=== PATIENT | male | born 1960 | race Caucasian/White ===

== ENCOUNTER 2018-07-24 09:09 | Inpatient (IN) | payer BC ==
[~2018-07-24] VITALS: Ht 180.3 cm; Wt 89.8 kg
[2018-07-24] VITALS (23 sets, daily range): BP systolic 92–200; BP diastolic 63–116
[~2018-07-24 09:09] MED LIST: FENO48TA16 PO; LISI10TA2 PO
--- NOTE | 2018-07-24 09:28 | RAD ---
PQRS Compliance Statement: One or more of the following individualized dose reduction techniques were utilized for this examination: 1. Automated exposure control 2. Adjustment of the mA and/or kV according to patient size 3. Use of iterative reconstruction technique CT head without contrast 07/24/2018 9:05 AM INDICATION: Facial numbness COMPARISON: None available TECHNIQUE: Multiple axial CT images of the head were obtained from skull base through the vertex without intravenous contrast. FINDINGS: Head: Ventricles, sulci and basal cisterns are within normal limits. Focal hypoattenuation in the right caudate head may represent a remote lacunar infarct. There is no hydrocephalus. Burnett-white matter differentiation is normal. There is no acute intracranial hemorrhage. There is no mass, mass effect or midline shift. Posterior fossa is normal in appearance. Visualized portions of the orbits are normal. Paranasal sinuses are well aerated. Mastoid air cells are well aerated. Scalp and calvaria are normal. IMPRESSION: No acute intracranial hemorrhage. 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 FOR INTERNAL CODING PURPOSES Critical result: Findings discussed with ROLANDO ENRIQUE at 07/24/2018 9:21 AM. RESULT CODE: (C) Electronically signed by: Nerissa Mckeon MD (07/24/2018 9:23 AM) [facility]
--- NOTE | 2018-07-24 09:32 | PHYS DOC ---
Past Medical History Past Medical History: High Cholesterol, Hypertension Past Surgical History: Other Additional Past Surgical Histo: cyst Alcohol Use: None Drug Use: None Adult General Chief Complaint Chief Complaint: NEURO SYMPTOMS/DEFICITS [facility] Patient is a 57 year old male who brought in by EMS because of focal neuro deficit. Patient states he had sudden onset of left sided facial and upper extremity numbness that started at 0740 as a constant problem with problem with his speech. Patient was not able to stand up or walk at his home. Patient brought in as a code stroke activation. Patient has history of hypertension and dyslipidemia and doesn't take medications. Patient states he had 1 episodes of dizziness 4 days ago that last for a short time without any focal neuro deficit. Review of Systems Review of Systems Constitutional: Denies fever or chills [] Eyes: Denies change in visual acuity, redness, or eye pain [] HENT: Denies nasal congestion or sore throat [] Respiratory: Denies cough or shortness of breath [] Cardiovascular: No additional information not addressed in HPI [] GI: Denies abdominal pain, nausea, vomiting, bloody stools or diarrhea [] : Denies dysuria or hematuria [] Musculoskeletal: Denies back pain or joint pain [] Integument: Denies rash or skin lesions [] Neurologic: Denies headache, reports focal weakness and sensory changes [] Endocrine: Denies polyuria or polydipsia [] All other systems were reviewed and found to be within normal limits, except as documented in this note. Current Medications Current Medications Allergies Allergies Allergies Coded Allergies Type Severity Reaction Last Updated Verified venom-honey bee Allergy Intermediate 05/04/15 No Physical Exam Physical Exam Constitutional: Well developed, well nourished, mild distress, non-toxic appearance. [] HENT: Normocephalic, atraumatic, bilateral external ears normal, oropharynx moist, no oral exudates, nose normal. [] Eyes: PERRLA, nystagmus bilaterally, decrease of vision in right eye, left eye medial deviation, conjunctiva normal, no discharge. [] Neck: Normal range of motion, no tenderness, supple, no stridor. [] Cardiovascular: Sinus bradycardia, no murmur [] Lungs & Thorax: Bilateral breath sounds clear to auscultation [] Abdomen: Bowel sounds normal, soft, no tenderness, no masses, no pulsatile masses. [] Skin: Warm, dry, no erythema, no rash. [] Back: No tenderness, no CVA tenderness. [] Extremities: No tenderness, no cyanosis, no clubbing, ROM intact, no edema. [] Neurologic: Alert and oriented X 3, mild left lower extremity weakness, left side of face and upper extremity decrease of sensation, no facial weakness Current Patient Data Vital Signs Vital Signs Date Time Temp Pulse Resp B/P (MAP) Pulse Ox O2 Delivery O2 Flow Rate FiO2 07/24/18 09:29 57 16 98 07/24/18 09:09 97.4 193/117 (142) Room Air 97.4 Lab Values Laboratory Tests Test 07/24/18 09:17 07/24/18 09:18 Glucose (Fingerstick) 173 mg/dL (70-99) H White Blood Count 11.6 x10^3/uL (4.0-11.0) H Red Blood Count 5.71 x10^6/uL (4.30-5.70) H Hemoglobin 17.8 g/dL (13.0-17.5) H Hematocrit 51.4 % (39.0-53.0) Mean Corpuscular Volume 89 fL (79-100) Mean Corpuscular Hemoglobin 32 pg (25-35) Mean Corpuscular Hemoglobin Concent 36 g/dL (31-37) Red Cell Distribution Width 13.2 % (11.5-14.5) Platelet Count 299 x10^3/uL (140-400) Prothrombin Time 12.8 SEC (11.7-14.0) Prothrombin Time INR 1.0 (0.8-1.1) PTT 27 SEC (24-38) Sodium Level 137 mmol/L (136-145) Potassium Level 3.9 mmol/L (3.5-5.1) Chloride Level 102 mmol/L (98-107) Carbon Dioxide Level 25 mmol/L (21-32) Anion Gap 10 (6-14) Blood Urea Nitrogen 13 mg/dL (8-26) Creatinine 1.0 mg/dL (0.7-1.3) Estimated GFR (Cockcroft-Gault) 77.0 BUN/Creatinine Ratio 13 (6-20) Glucose Level 171 mg/dL (70-99) H Calcium Level 9.0 mg/dL (8.5-10.1) Total Bilirubin 0.5 mg/dL (0.2-1.0) Aspartate Amino Transferase (AST) 17 U/L (15-37) Alanine Aminotransferase (ALT) 26 U/L (16-63) Alkaline Phosphatase 83 U/L (46-116) Troponin I Quantitative < 0.017 ng/mL (0.000-0.055) Total Protein 7.1 g/dL (6.4-8.2) Albumin 3.8 g/dL (3.4-5.0) Albumin/Globulin Ratio 1.2 (1.0-1.7) Laboratory Tests 07/24/18 09:18 Laboratory Tests 07/24/18 09:18 EKG EKG EKG interpreted by me. EKG at 0 927 showed sinus bradycardia at rate of 56, leftward axis, poor R-wave progress in anteroseptal leads, no acute ST and T- wave abnormalities. Radiology/Procedures Radiology/Procedures [facility] [address] [place], [place] [id number] IMAGING REPORT Signed PATIENT: GABRIELLA ALVAREZ ACCOUNT: [id number] : 1960 LOCATION: ER AGE: 57 SEX: M EXAM STATUS: PRE ER ORD. PHYSICIAN: ROLANDO ENRIQUE MD REASON: code stroke PROCEDURE: CT CODE STROKE HEAD WO RS Compliance Statement: One or more of the following individualized dose reduction techniques were utilized for this examination: 1. Automated exposure control 2. Adjustment of the mA and/or kV according to patient size 3. Use of iterative reconstruction technique CT head without contrast 07/24/2018 9:05 AM INDICATION: Facial numbness COMPARISON: None available TECHNIQUE: Multiple axial CT images of the head were obtained from skull base through the vertex without intravenous contrast. FINDINGS: Head: Ventricles, sulci and basal cisterns are within normal limits. Focal hypoattenuation in the right caudate head may represent a remote lacunar infarct. There is no hydrocephalus. Burnett-white matter differentiation is normal. There is no acute intracranial hemorrhage. There is no mass, mass effect or midline shift. Posterior fossa is normal in appearance. Visualized portions of the orbits are normal. Paranasal sinuses are well aerated. Mastoid air cells are well aerated. Scalp and calvaria are normal. IMPRESSION: No acute intracranial hemorrhage. 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 FOR INTERNAL CODING PURPOSES Critical result: Findings discussed with ROLANDO ENRIQUE at 07/24/2018 9:21 AM. RESULT CODE: (C) Electronically signed by: Yola Haq MD (07/24/2018 9:23 AM) [facility] DICTATED and SIGNED BY: YOLA HAQ MD DATE: 07/24/18919 Course & Med Decision Making Course & Med Decision Making Pertinent Labs and Imaging studies reviewed. (See chart for details) Evaluation of patient in ER showed 57-year-old male patient brought in by EMS because of acute onset onset of focal neuro deficit less than 3 hours prior to arrival to ER. Patient had NIHSS of 5 and had criteria for TPA on-call neurologist Dr. Anaya was consulted agreed with plan of starting TPA. TPA was started at 0950 after controlling elevation of blood pressure with improvement of symptoms. CT angio head and neck is pending. Dr. Frausto accepted admission at 0955. Dragon Disclaimer Dragon Disclaimer This electronic medical record was generated, in whole or in part, using a voice recognition dictation system. Departure Departure Impression: Primary Impression: Acute focal neurological deficit, onset within 3 hours Additional Impressions: Hypertensive urgency Tobacco abuse Tobacco abuse counseling Disposition: ADMITTED INPATIENT (at 0 942) Admitting Physician: Nayely Frausto Condition: GUARDED Referrals: TATIANNA CAMERON MD (PCP) NIHSS Stroke Scale NIH Stroke Scale: NIH Stroke Scale Response (Comments) Value Level of Consciousness: 0 Alert/Responsive 0 LOC Questions: 0 Answers both correctly 0 LOC Commands: 0 Performs both tasks 0 Best Gaze: 1 Partial gaze palsy 1 Visual: 1 Partial hemianopia 1 Facial Palsy: 0 Normal, symmetrical 0 Motor - Left Arm 0 No drift 0 Motor - Right Arm 0 No drift 0 Motor - Left Leg 1 Drift but can hold 1 Motor: Right Leg 0 No drift 0 Limb Ataxia: 1 One limb 1 Sensory: 1 Mid to moderate loss 1 Best Language: 0 Normal 0 Dysathria: 0 Normal 0 Extinction and Inattention: 0 Normal 0 Total 5 Critical Care Time Critical care time was 60 minutes exclusive of procedures. Problem Qualifiers ROLANDO ENRIQUE MD Jul 24, 2018 09:32
[2018-07-24 09:34] LABS: RED BLOOD COUNT 5.71 x10^6/uL (4.30-5.70); RED CELL DISTRIBUTION WIDTH 13.2 % (11.5-14.5); WHITE BLOOD COUNT 11.6 x10^3/uL (4.0-11.0)
--- NOTE | 2018-07-24 09:39 | EKG ---
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
[2018-07-24] MEDS ORDERED: ALTEPLASE IV ONE (09:40)
[2018-07-24] MEDS ORDERED: ALTEPLASE IV SCH (09:41)
[2018-07-24 09:43] LABS: HEMATOCRIT 51.4 % (39.0-53.0); HEMOGLOBIN 17.8 g/dL (13.0-17.5)
[2018-07-24] MEDS ORDERED: hydrALAZINE 20 MG/ML VIAL. IVP ONE ×2 (09:45→10:45)
[2018-07-24 09:47] LABS: PROTHROMBIN TIME PATIENT 12.8 SEC (11.7-14.0)
[2018-07-24 09:51] LABS: POTASSIUM 3.9 mmol/L (3.5-5.1)
[2018-07-24 09:56] LABS: ALBUMIN 3.8 g/dL (3.4-5.0); ALBUMIN/GLOBULIN RATIO 1.2 (1.0-1.7); TOTAL BILIRUBIN 0.5 mg/dL (0.2-1.0); TOTAL PROTEIN 7.1 g/dL (6.4-8.2)
[2018-07-24] MEDS ORDERED: CONTRAST GIVEN. MC PRN (10:15)
[2018-07-24] MEDS ORDERED: IOHEXOL 350 MG/ML 100 ML VIAL. IV ONE (10:15)
[2018-07-24] MEDS ORDERED: IOHEXOL 300 MG/ML 100ML VIAL. IV ONE (10:15)
[2018-07-24] MEDS ORDERED: IV NORMAL SALINE 50ML 50 ML IV ONE (10:40)
--- NOTE | 2018-07-24 11:06 | RAD ---
PQRS Compliance Statement: One or more of the following individualized dose reduction techniques were utilized for this examination: 1. Automated exposure control 2. Adjustment of the mA and/or kV according to patient size 3. Use of iterative reconstruction technique CT angiography head and neck with contrast 07/24/2018 INDICATION: Altered mental status. Cholesterol. COMPARISON: Multiple axial CT images of the head and neck were obtained after the intravenous administration of 75 mL Omnipaque 350. Coronal and sagittal reformats are provided. Maximum intensity projection images of the cervical and intracranial vasculature are provided. FINDINGS: Nonvascular findings: No suspicious enhancement is identified. Orbits are normal in appearance. Paranasal sinuses are well aerated. No suspicious mucosal lesion is identified involving the pharynx and larynx. There are no pathologically enlarged cervical lymph nodes. Soft tissues are within normal limits. A right paratracheal lymph node measures 17 x 13 mm. There is paraseptal emphysematous changes within the visualized lung apices. Mild facet and uncovertebral joint disease is noted with mild cervical spondylosis. Vascular findings: A normal three-vessel aortic arch is visualized. Origins of the brachiocephalic vessels appear widely patent. The left common carotid artery is normal in course and caliber. No significant plaque is identified at the carotid bifurcation. No significant stenosis of the proximal left internal carotid artery. Left external carotid artery is widely patent. Right common carotid artery is normal in course and caliber. There is no significant stenosis involving the proximal right internal carotid artery. Right external carotid artery is widely patent. Vertebral arteries arise from their respective subclavian vessels. Right vertebral artery is larger than the left. Vertebral arteries are normal in course and caliber. There is focal severe stenosis of the intracranial segment left vertebral artery which may be secondary to atherosclerotic changes are vertebral dissection (series 3, image 205). Right posterior inferior cerebellar arteries visualize. Left posterior inferior cerebellar artery is not well visualized. Right vertebral artery is dominant. There is mild irregularity involving the proximal petrous portion of the left internal carotid artery. Intracranial segments of internal carotid arteries are otherwise normal in course and caliber. Middle cerebral arteries are normal in course and caliber with patent sylvian branches. Anterior cerebral arteries are normal in course and caliber. Bilateral A1 segments of anterior cerebral arteries are present. The anterior communicating artery is not definitively visualized. Basilar artery is normal in course and caliber. Superior cerebellar arteries are patent. Bilateral P1 segments of the posterior cerebral arteries are present. Posterior cerebral arteries are normal in course and caliber. Posterior communicating arteries are not well visualized. There is no aneurysm or vascular malformation identified. Superior sagittal sinus and transverse sinuses are patent. IMPRESSION: 1. There is focal high-grade stenosis involving the intracranial segment of the left vertebral artery versus vertebral dissection. There is reconstitution of the left vertebral artery distally, likely secondary to retrograde flow from the right vertebral artery. Right vertebral artery is dominant. 2. There is no hemodynamically significant stenosis involving the cervical carotid vessels. Mild stenosis is identified at the origin of the petrous segment of the left internal carotid artery. 3. Mild paraseptal emphysema. Electronically signed by: Nerissa Mckeon MD (07/24/2018 11:02 AM) [facility]
[2018-07-24] MEDS ORDERED: LABETALOL 20 MG/4 ML DISP.SYRIN. IVP PRN (11:15)
[2018-07-24] MEDS ORDERED: ACETAMINOPHEN 325 MG SUPP.RECT. PR PRN (11:15)
[2018-07-24] MEDS ORDERED: ACETAMINOPHEN 325 MG TABLET. PO PRN (11:15)
[2018-07-24] MEDS ORDERED: ONDANSETRON PF 4 MG/2 ML VIAL. IV PRN (11:15)
--- NOTE | 2018-07-24 11:30 | NUR ---
Patient received ICU at 1100. Oriented to room, ED RN administered NIH at bedside. Admission completed. Patient complained 10/ head ache. Dr. Wing paged and is on way down to see patient. Morphine, 2mg every 2hrs ordered and administered. Family at bedside.
[2018-07-24] MEDS: MORPHINE SULFATE 4 MG/ML VIAL. IV PRN ×2 (11:42→13:32)
[2018-07-24] MEDS ORDERED: MORPHINE SULFATE 4 MG/ML VIAL. IV ONE (11:45)
--- NOTE | 2018-07-24 11:54 | PDOC2 ---
NEUROLOGY CONSULT Date of Admission Date of Admission DATE: 07/24/18 TIME: 11:45 Reason for Consult Reason for Consult: Stroke symptoms Referring Physician Referring Physician: Dr. Frausto Source Source: Caregiver ( and daughter), Chart review, Patient History of Present Illness History of Present Illness The patient is a 57-year-old right-handed male who at 7:45 AM today noticed onset of dizziness, left face and arm numbness. He came to the [facility] emergency department. I discussed the case with Dr. Gutierrez the patient did receive alteplase. He also has had CT of the head and CT angiogram as described below. There is no prior history of stroke, seizure, or head injury. He denies any type of recent strenuous activity or hyperextension of his neck. Since the alteplase but before the CTA, he is developed severe left frontal head pain. He admits to noncompliance with his antihypertensives. 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 Current Medications Current Medications Current Medications Alteplase, Recombinant 8.1 ml @ 486 mls/hr 1X ONCE IV Last administered on at 09:50; Start 07/24/18 at 09:40; Stop 07/24/18 at 09:41; Status DC Alteplase, Recombinant 73 ml @ 73 mls/hr Q1H IV Last administered on 07/24/18at 09:54; Start 07/24/18 at 09:41; Stop 07/24/18 at 10:40; Status DC Sodium Chloride 50 ml @ 200 mls/hr 1X ONCE IV Last administered on 07/24/18at 10:39; Start 07/24/18 at 10:40; Stop 07/24/18 at 10:54; Status DC Hydralazine HCl (Apresoline Inj) 10 mg 1X ONCE IVP Last administered on at 10:07; Start 07/24/18 at 09:45; Stop 07/24/18 at 09:46; Status DC Iohexol (Omnipaque 300 Mg/ml) 75 ml 1X ONCE IV ; Start 07/24/18 at 10:15; Stop 07/24/18 at 10:16; Status DC Iohexol (Omnipaque 350 Mg/ml) 75 ml 1X ONCE IV Last administered on 07/24/18at 10:21; Start 07/24/18 at 10:15; Stop 07/24/18 at 10:16; Status DC Info (CONTRAST GIVEN -- Rx MONITORING) 1 each PRN DAILY PRN MC SEE COMMENTS; Start 07/24/18 at 10:15; Stop 07/26/18 at 10:14 Hydralazine HCl (Apresoline Inj) 10 mg 1X ONCE IVP Last administered on at 10:37; Start 07/24/18 at 10:45; Stop 07/24/18 at 10:46; Status DC Labetalol HCl (Normodyne Iv Push) 10 mg PRN Q10MIN PRN IVP HYPERTENSION, SEE COMMENTS; Start 07/24/18 at 11:15 Nicardipine HCl 50 mg/Sodium Chloride 250 ml @ 25 mls/hr CONT PRN PRN IV HYPERTENSION, SEE COMMENTS; Start 07/24/18 at 11:15 Acetaminophen (Tylenol) 650 mg PRN Q6HRS PRN PO MILD PAIN / TEMP; Start at 11:15 Acetaminophen (Tylenol Supp) 325 mg PRN Q6HRS PRN CT MILD PAIN / TEMP; Start at 11:15 Ondansetron HCl (Zofran) 4 mg PRN Q6HRS PRN IV NAUSEA/VOMITING; Start 07/24/18 at 11:15 Morphine Sulfate (Morphine Sulfate) 2 mg 1X ONCE IV ; Start 07/24/18 at 11:45; Stop 07/24/18 at 11:46; Status DC Active Scripts Active Reported Tricor (Fenofibrate Nanocrystallized) 48 Mg Tablet 48 Mg PO DAILY Lisinopril 10 Mg Tablet 10 Mg PO DAILY Allergies Allergies: Coded Allergies: venom-honey bee (Unverified Allergy, Intermediate, 05/04/15) ROS Review of System Negative for fever, chills, weight loss, shortness of breath, chest pain, indigestion, hematochezia, melena, and dysuria. Full 14-point review of systems is negative. Physical Exam Physical Examination General: Well-developed, well-nourished white male in no acute distress HEENT: Normocephalic andatraumatic. Tympanic membranes clear.Temporal arteries pulsatile and nontender.Fundoscopic exam unremarkable Neck: Supple without bruit, no meningismus Musculoskeletal: Stability:see neurologic. Gait exam:see neurologic. Tone:see neurologic. Strength:see neurologic. Neurological: Mental Status:intact, orientation, memory, attention span/concentration, language, fund of knowledge normal. Cranial Nerves:Pupils equal and reactive to light, visual urrutia are full to confrontation. 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 Facial sensation is decreased on left. There is no facial asymmetry. Vestibulo-ocular reflex is intact. Palate elevates and tongue protrudes in midline. All other cranial related problems are negative except as mentioned before.Reflexes:2+ and symmetric with flexor plantar responses. Motor:5/5 strength with normal tone and bulk. Coordination:Left dysmetria. Rapid alternating movements and fine finger movements are intact. Gait:Normal, including tandem. Sensory:Sensory loss on left. Vitals VITALS Vital Signs Date Time Temp Pulse Resp B/P (MAP) Pulse Ox O2 Delivery O2 Flow Rate FiO2 07/24/18 10:55 78 16 97 07/24/18 10:37 192/97 07/24/18 09:09 97.4 Room Air 97.4 Labs Labs Laboratory Tests Test 07/24/18 09:17 07/24/18 09:18 Glucose (Fingerstick) 173 mg/dL (70-99) White Blood Count 11.6 x10^3/uL (4.0-11.0) Red Blood Count 5.71 x10^6/uL (4.30-5.70) Hemoglobin 17.8 g/dL (13.0-17.5) Hematocrit 51.4 % (39.0-53.0) Mean Corpuscular Volume 89 fL (79-100) Mean Corpuscular Hemoglobin 32 pg (25-35) Mean Corpuscular Hemoglobin Concent 36 g/dL (31-37) Red Cell Distribution Width 13.2 % (11.5-14.5) Platelet Count 299 x10^3/uL (140-400) Prothrombin Time 12.8 SEC (11.7-14.0) Prothromb Time International Ratio 1.0 (0.8-1.1) Activated Partial Thromboplast Time 27 SEC (24-38) Sodium Level 137 mmol/L (136-145) Potassium Level 3.9 mmol/L (3.5-5.1) Chloride Level 102 mmol/L (98-107) Carbon Dioxide Level 25 mmol/L (21-32) Anion Gap 10 (6-14) Blood Urea Nitrogen 13 mg/dL (8-26) Creatinine 1.0 mg/dL (0.7-1.3) Estimated GFR (Cockcroft-Gault) 77.0 BUN/Creatinine Ratio 13 (6-20) Glucose Level 171 mg/dL (70-99) Calcium Level 9.0 mg/dL (8.5-10.1) Total Bilirubin 0.5 mg/dL (0.2-1.0) Aspartate Amino Transf (AST/SGOT) 17 U/L (15-37) Alanine Aminotransferase (ALT/SGPT) 26 U/L (16-63) Alkaline Phosphatase 83 U/L (46-116) Troponin I Quantitative < 0.017 ng/mL (0.000-0.055) Total Protein 7.1 g/dL (6.4-8.2) Albumin 3.8 g/dL (3.4-5.0) Albumin/Globulin Ratio 1.2 (1.0-1.7) Laboratory Tests Test 07/24/18 09:17 07/24/18 09:18 Glucose (Fingerstick) 173 mg/dL (70-99) White Blood Count 11.6 x10^3/uL (4.0-11.0) Red Blood Count 5.71 x10^6/uL (4.30-5.70) Hemoglobin 17.8 g/dL (13.0-17.5) Hematocrit 51.4 % (39.0-53.0) Mean Corpuscular Volume 89 fL (79-100) Mean Corpuscular Hemoglobin 32 pg (25-35) Mean Corpuscular Hemoglobin Concent 36 g/dL (31-37) Red Cell Distribution Width 13.2 % (11.5-14.5) Platelet Count 299 x10^3/uL (140-400) Prothrombin Time 12.8 SEC (11.7-14.0) Prothromb Time International Ratio 1.0 (0.8-1.1) Activated Partial Thromboplast Time 27 SEC (24-38) Sodium Level 137 mmol/L (136-145) Potassium Level 3.9 mmol/L (3.5-5.1) Chloride Level 102 mmol/L (98-107) Carbon Dioxide Level 25 mmol/L (21-32) Anion Gap 10 (6-14) Blood Urea Nitrogen 13 mg/dL (8-26) Creatinine 1.0 mg/dL (0.7-1.3) Estimated GFR (Cockcroft-Gault) 77.0 BUN/Creatinine Ratio 13 (6-20) Glucose Level 171 mg/dL (70-99) Calcium Level 9.0 mg/dL (8.5-10.1) Total Bilirubin 0.5 mg/dL (0.2-1.0) Aspartate Amino Transf (AST/SGOT) 17 U/L (15-37) Alanine Aminotransferase (ALT/SGPT) 26 U/L (16-63) Alkaline Phosphatase 83 U/L (46-116) Troponin I Quantitative < 0.017 ng/mL (0.000-0.055) Total Protein 7.1 g/dL (6.4-8.2) Albumin 3.8 g/dL (3.4-5.0) Albumin/Globulin Ratio 1.2 (1.0-1.7) Images Images CT angiography head and neck with contrast 07/24/2018 Nonvascular findings: No suspicious enhancement is identified. Orbits are normal in appearance. Paranasal sinuses are well aerated. No suspicious mucosal lesion is identified involving the pharynx and larynx. There are no pathologically enlarged cervical lymph nodes. Soft tissues are within normal limits. A right paratracheal lymph node measures 17 x 13 mm. There is paraseptal emphysematous changes within the visualized lung apices. Mild facet and uncovertebral joint disease is noted with mild cervical spondylosis. Vascular findings: A normal three-vessel aortic arch is visualized. Origins of the brachiocephalic vessels appear widely patent. The left common carotid artery is normal in course and caliber. No significant plaque is identified at the carotid bifurcation. No significant stenosis of the proximal left internal carotid artery. Left external carotid artery is widely patent. Right common carotid artery is normal in course and caliber. There is no significant stenosis involving the proximal right internal carotid artery. Right external carotid artery is widely patent. Vertebral arteries arise from their respective subclavian vessels. Right vertebral artery is larger than the left. Vertebral arteries are normal in course and caliber. There is focal severe stenosis of the intracranial segment left vertebral artery which may be secondary to atherosclerotic changes are vertebral dissection (series 3, image 205). Right posterior inferior cerebellar arteries visualize. Left posterior inferior cerebellar artery is not well visualized. Right vertebral artery is dominant. There is mild irregularity involving the proximal petrous portion of the left internal carotid artery. Intracranial segments of internal carotid arteries are otherwise normal in course and caliber. Middle cerebral arteries are normal in course and caliber with patent sylvian branches. Anterior cerebral arteries are normal in course and caliber. Bilateral A1 segments of anterior cerebral arteries are present. The anterior communicating artery is not definitively visualized. Basilar artery is normal in course and caliber. Superior cerebellar arteries are patent. Bilateral P1 segments of the posterior cerebral arteries are present. Posterior cerebral arteries are normal in course and caliber. Posterior communicating arteries are not well visualized. There is no aneurysm or vascular malformation identified. Superior sagittal sinus and transverse sinuses are patent. IMPRESSION: 1. There is focal high-grade stenosis involving the intracranial segment of the left vertebral artery versus vertebral dissection. There is reconstitution of the left vertebral artery distally, likely secondary to retrograde flow from the right vertebral artery. Right vertebral artery is dominant. 2. There is no hemodynamically significant stenosis involving the cervical carotid vessels. Mild stenosis is identified at the origin of the petrous segment of the left internal carotid artery. 3. Mild paraseptal emphysema. CT head without contrast 07/24/2018 9:05 AM INDICATION: Facial numbness COMPARISON: None available TECHNIQUE: Multiple axial CT images of the head were obtained from skull base through the vertex without intravenous contrast. FINDINGS: Head: Ventricles, sulci and basal cisterns are within normal limits. Focal hypoattenuation in the right caudate head may represent a remote lacunar infarct. There is no hydrocephalus. Burnett-white matter differentiation is normal. There is no acute intracranial hemorrhage. There is no mass, mass effect or midline shift. Posterior fossa is normal in appearance. Visualized portions of the orbits are normal. Paranasal sinuses are well aerated. Mastoid air cells are well aerated. Scalp and calvaria are normal. IMPRESSION: No acute intracranial hemorrhage. 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 This is causing brainstem stroke symptoms and headache. I doubt that he is having a cerebral hemorrhage given the fact that the pain began before we did the CT angiogram and on review of images there is no bleed. History of hypertension, noncompliance. Recommendations: Vascular surgery consult. I see no need for immediate endovascular intervention. Start long-term anticoagulation but have to wait 24 hours after the alteplase Repeat CT head later today if headache persists. Morphine as needed. Echocardiogram MRI of the brain tomorrow. Rehabilitation modalities. Blood pressure control as per stroke orders. Check lipids. Fully discussed with patient and his family. Thank you for letting me help with the patient's care. BRENDA BRITT MD Jul 24, 2018 11:54
[2018-07-24] MEDS ORDERED: NICOTINE 21MG PATCH. TD PRN (14:00)
--- NOTE | 2018-07-24 14:05 | PDOC1 ---
History and Physical Date of Admission Date of Admission DATE: 07/24/18 TIME: 13:55 Identification/Chief Complaint Chief Complaint Left-sided facial numbness, left arm numbness and weakness Some slurred speech Source Source: Caregiver, Chart review, Patient History of Present Illness History of Present Illness 57-year-old male who lives at home, no significant past medical history or at least does not take any meds, comes in with above chief complaint around 7:40 AM which was within TPA window. NIH score 5. Severe headache, left- sided facial numbness and weakness, reports of slurred speech but none currently. Neurology consulted and agreed with TPA. I'm seeing at ICU post TPA with a CTA of the head and neck showing left vertebral artery stenosis. Blood pressure on the high side 170s to 180 systolic. HEadache, severe. Vascular surgery consulted. If there are needs for NEURO IR I will gladly transfer the patient. Patient ordered for echocardiogram and MRI tomorrow in the morning to see if there is any acute CVA. \CTA =IMPRESSION: 1. There is focal high-grade stenosis involving the intracranial segment of the left vertebral artery versus vertebral dissection. There is reconstitution of the left vertebral artery distally, likely secondary to retrograde flow from the right vertebral artery. Right vertebral artery is dominant. 2. There is no hemodynamically significant stenosis involving the cervical carotid vessels. Mild stenosis is identified at the origin of the petrous segment of the left internal carotid artery. 3. Mild paraseptal emphysema. Addendum to CT of the head - shows no acute intracerebral hemorrhage but maybe remote stroke in the right caudate head Past Medical History Cardiovascular: HTN Past Surgical History Past Surgical History: No pertinent history Family History Family History: High Cholestrol, Hypertension Social History Smoke: 1 pack per day ALCOHOL: none Drugs: None Current Medications Current Medications Current Medications Alteplase, Recombinant 8.1 ml @ 486 mls/hr 1X ONCE IV Last administered on at 09:50; Start 07/24/18 at 09:40; Stop 07/24/18 at 09:41; Status DC Alteplase, Recombinant 73 ml @ 73 mls/hr Q1H IV Last administered on 07/24/18at 09:54; Start 07/24/18 at 09:41; Stop 07/24/18 at 10:40; Status DC Sodium Chloride 50 ml @ 200 mls/hr 1X ONCE IV Last administered on 07/24/18at 10:39; Start 07/24/18 at 10:40; Stop 07/24/18 at 10:54; Status DC Hydralazine HCl (Apresoline Inj) 10 mg 1X ONCE IVP Last administered on at 10:07; Start 07/24/18 at 09:45; Stop 07/24/18 at 09:46; Status DC Iohexol (Omnipaque 300 Mg/ml) 75 ml 1X ONCE IV ; Start 07/24/18 at 10:15; Stop 07/24/18 at 10:16; Status DC Iohexol (Omnipaque 350 Mg/ml) 75 ml 1X ONCE IV Last administered on 07/24/18at 10:21; Start 07/24/18 at 10:15; Stop 07/24/18 at 10:16; Status DC Info (CONTRAST GIVEN -- Rx MONITORING) 1 each PRN DAILY PRN MC SEE COMMENTS; Start 07/24/18 at 10:15; Stop 07/26/18 at 10:14 Hydralazine HCl (Apresoline Inj) 10 mg 1X ONCE IVP Last administered on at 10:37; Start 07/24/18 at 10:45; Stop 07/24/18 at 10:46; Status DC Labetalol HCl (Normodyne Iv Push) 10 mg PRN Q10MIN PRN IVP HYPERTENSION, SEE COMMENTS; Start 07/24/18 at 11:15 Nicardipine HCl 50 mg/Sodium Chloride 250 ml @ 25 mls/hr CONT PRN PRN IV HYPERTENSION, SEE COMMENTS; Start 07/24/18 at 11:15 Acetaminophen (Tylenol) 650 mg PRN Q6HRS PRN PO MILD PAIN / TEMP; Start at 11:15 Acetaminophen (Tylenol Supp) 325 mg PRN Q6HRS PRN CO MILD PAIN / TEMP; Start at 11:15 Ondansetron HCl (Zofran) 4 mg PRN Q6HRS PRN IV NAUSEA/VOMITING; Start 07/24/18 at 11:15 Morphine Sulfate (Morphine Sulfate) 2 mg 1X ONCE IV Last administered on at 11:47; Start 07/24/18 at 11:45; Stop 07/24/18 at 11:46; Status DC Morphine Sulfate (Morphine Sulfate) 2 mg PRN Q2HR PRN IV PAIN Last administered on 07/24/18at 11:42; Start 07/24/18 at 12:00 Influenza Virus Vaccine (Afluria Trivalent [id number] Syringe) 0.5 ml ONCE ONCE VAX IM ; Start 07/24/18 at 13:16; Stop 07/24/18 at 13:17; Status DC Active Scripts Active Reported Lisinopril 10 Mg Tablet 10 Mg PO DAILY Allergies Allergies: Coded Allergies: venom-honey bee (Unverified Allergy, Intermediate, 05/04/15) ROS Review of System BAd headache, numb left side face, weak left arm, the rest of ROS 14 point negative Physical Exam General: No acute distress, Other (weak looking and has a towel over his forehead) HEENT: Atraumatic, PERRLA Lungs: Clear to auscultation, Normal air movement Heart: S1S2, RRR, no thrills, no rubs, no gallops, no murmurs, murmurs, no jug vein distention Cardiovascular: S1, S2 Abdomen: Normal bowel sounds, Soft, No tenderness, No hepatosplenomegaly, No masses Male Genitals Exam: normal genitalia, normal prostate Rectal Exam: not examined PELVIC: Nml ext genitalia Extremities: No clubbing, No cyanosis, No edema, Normal pulses, No tenderness/ swelling Skin: No rashes, No breakdown, No significant lesion Neuro: Normal speech, Normal tone, Sensation intact, Cranial nerves 3-12 NL, Reflexes 2+, Other (maybe muscle manual testing 4 out of 5 just because of severe headache, affecting cooperation) Psych/Mental Status: Mental status NL, Mood NL Vitals Vitals Vital Signs Date Time Temp Pulse Resp B/P (MAP) Pulse Ox O2 Delivery O2 Flow Rate FiO2 07/24/18 13:32 18 97 2.0 07/24/18 13:30 78 148/102 (117) Room Air 07/24/18 11:00 97.6 97.6 Labs Labs Laboratory Tests Test 07/24/18 09:17 07/24/18 09:18 Glucose (Fingerstick) 173 mg/dL (70-99) White Blood Count 11.6 x10^3/uL (4.0-11.0) Red Blood Count 5.71 x10^6/uL (4.30-5.70) Hemoglobin 17.8 g/dL (13.0-17.5) Hematocrit 51.4 % (39.0-53.0) Mean Corpuscular Volume 89 fL (79-100) Mean Corpuscular Hemoglobin 32 pg (25-35) Mean Corpuscular Hemoglobin Concent 36 g/dL (31-37) Red Cell Distribution Width 13.2 % (11.5-14.5) Platelet Count 299 x10^3/uL (140-400) Prothrombin Time 12.8 SEC (11.7-14.0) Prothromb Time International Ratio 1.0 (0.8-1.1) Activated Partial Thromboplast Time 27 SEC (24-38) Sodium Level 137 mmol/L (136-145) Potassium Level 3.9 mmol/L (3.5-5.1) Chloride Level 102 mmol/L (98-107) Carbon Dioxide Level 25 mmol/L (21-32) Anion Gap 10 (6-14) Blood Urea Nitrogen 13 mg/dL (8-26) Creatinine 1.0 mg/dL (0.7-1.3) Estimated GFR (Cockcroft-Gault) 77.0 BUN/Creatinine Ratio 13 (6-20) Glucose Level 171 mg/dL (70-99) Calcium Level 9.0 mg/dL (8.5-10.1) Total Bilirubin 0.5 mg/dL (0.2-1.0) Aspartate Amino Transf (AST/SGOT) 17 U/L (15-37) Alanine Aminotransferase (ALT/SGPT) 26 U/L (16-63) Alkaline Phosphatase 83 U/L (46-116) Troponin I Quantitative < 0.017 ng/mL (0.000-0.055) Total Protein 7.1 g/dL (6.4-8.2) Albumin 3.8 g/dL (3.4-5.0) Albumin/Globulin Ratio 1.2 (1.0-1.7) Laboratory Tests Test 07/24/18 09:17 07/24/18 09:18 Glucose (Fingerstick) 173 mg/dL (70-99) White Blood Count 11.6 x10^3/uL (4.0-11.0) Red Blood Count 5.71 x10^6/uL (4.30-5.70) Hemoglobin 17.8 g/dL (13.0-17.5) Hematocrit 51.4 % (39.0-53.0) Mean Corpuscular Volume 89 fL (79-100) Mean Corpuscular Hemoglobin 32 pg (25-35) Mean Corpuscular Hemoglobin Concent 36 g/dL (31-37) Red Cell Distribution Width 13.2 % (11.5-14.5) Platelet Count 299 x10^3/uL (140-400) Prothrombin Time 12.8 SEC (11.7-14.0) Prothromb Time International Ratio 1.0 (0.8-1.1) Activated Partial Thromboplast Time 27 SEC (24-38) Sodium Level 137 mmol/L (136-145) Potassium Level 3.9 mmol/L (3.5-5.1) Chloride Level 102 mmol/L (98-107) Carbon Dioxide Level 25 mmol/L (21-32) Anion Gap 10 (6-14) Blood Urea Nitrogen 13 mg/dL (8-26) Creatinine 1.0 mg/dL (0.7-1.3) Estimated GFR (Cockcroft-Gault) 77.0 BUN/Creatinine Ratio 13 (6-20) Glucose Level 171 mg/dL (70-99) Calcium Level 9.0 mg/dL (8.5-10.1) Total Bilirubin 0.5 mg/dL (0.2-1.0) Aspartate Amino Transf (AST/SGOT) 17 U/L (15-37) Alanine Aminotransferase (ALT/SGPT) 26 U/L (16-63) Alkaline Phosphatase 83 U/L (46-116) Troponin I Quantitative < 0.017 ng/mL (0.000-0.055) Total Protein 7.1 g/dL (6.4-8.2) Albumin 3.8 g/dL (3.4-5.0) Albumin/Globulin Ratio 1.2 (1.0-1.7) VTE Prophylaxis Ordered VTE Prophylaxis Devices: Yes VTE Pharmacological Prophylaxi: Yes Assessment/Plan Assessment/Plan HIGH grade Left vertebral artery stenosis versus dissection Left-sided facial numbness, left arm numbness/weakness Accelerated hypertension POA-noncompliance SMoker with emphysematous lungs on imaging PLAN: MRI of the brain. if new stroke might need transfer? neuro IR expertise?? [facility] surgery consulted Stroke workup including echo, MRI etc. Aspirin started 24 hrs post TPA ICU care No aspirin or blood thinners within 24 hrs of tPA NO home meds to reconcile NIcard gtt prn for high BP PT/OT when more well/stable SAMI patch prn OK for liquid diet for now - no swallow issues so far FULL CODE dw senior attorney and fam at bedside CC 30 ALON KEENAN MD Jul 24, 2018 14:05
--- NOTE | 2018-07-24 14:43 | NUR ---
SS following up with discharge planning. Pt's RN requested assistance with request for transfer to per Dr. Anaya. Pt's RN reported that radiology has been clouded. SS phoned transfer team and made request for transfer. video arcade manager reported that she was going to contact Dr. Anaya and conference there physicians and would notify SS once call was completed to request records if needed. Pt's RN notified.
--- NOTE | 2018-07-24 16:04 | NUR ---
SS received notification from pt's RN that [facility] declined pt for transfer.
--- NOTE | 2018-07-24 16:43 | CARD ---
MR#: [id number] Date of Study: 07/24/2018 Ordering Physician: BRENDA BRITT, Referring Physician: ALON KEENAN Tech: Irasema Valentine APPROVED REPORT EXAM: Two-dimensional and M-mode echocardiogram with Doppler and color Doppler. Other Information Quality : AverageHR: 77bpm INDICATION CVD RISK FACTORS Hypertension Hyperlipidemia Smoking 2D DIMENSIONS RVDd3.2 (2.9-3.5cm)Left Atrium(2D)3.5 (1.6-4.0cm) IVSd1.3 (0.7-1.1cm)Aortic Root(2D)3.1 (2.0-3.7cm) LVDd4.6 (3.9-5.9cm)LVOT Diameter2.1 (1.8-2.4cm) PWd1.1 (0.7-1.1cm)LVDs2.6 (2.5-4.0cm) FS (%) 44.4 %SV73.9 ml LVEF(%)75.8 (>50%) Aortic Valve AoV Peak Hugo.171.6cm/sAoV VTI29.7cm AO Peak GR.11.8mmHgLVOT VTI 22.80cm AO Mean GR.6mmHg Mitral Valve MV E Zryaftdw86.0cm/sMV DECEL [id number] MV A Edamabqr160.1cm/sE/A Ratio0.8 TDI Lateral E' P. V9.54cm/sMedial E' P. V7.01cm/s E/Lateral E'8.0E/Medial E'10.8 Tricuspid Valve RAP [id number] Pulmonary Vein S1 Nsjmfbwd12.4cm/sS2 Thipjkje66.23cm/s D2 Sydxrkih59.2cm/sPVa [id number] LEFT VENTRICLE The left ventricle is normal size. There is mild to moderate concentric left ventricular hypertrophy. The left ventricular systolic function is normal and the ejection fraction is within normal range. T he Ejection Fraction is >55%. There is normal LV segmental wall motion. Transmitral Doppler flow narinder cristobal is Grade I-abnormal relaxation pattern. RIGHT VENTRICLE The right ventricle is normal size. There is normal right ventricular wall thickness. The right ventr icular systolic function is normal. ATRIA The left atrium size is normal. The right atrium size is normal. The interatrial septum is intact wit h no evidence for an atrial septal defect or patent foramen ovale as noted on 2-D or Doppler imaging. No evidence of right to left shunt on suboptimal agitated saline study. AORTIC VALVE The aortic valve is not well visualized. Doppler and Color Flow revealed no significant aortic regurg itation. There is no significant aortic valvular stenosis. MITRAL VALVE The mitral valve is normal in structure and function. There is no evidence of mitral valve prolapse. There is no mitral valve stenosis. Doppler and Color-flow revealed trace mitral regurgitation. TRICUSPID VALVE The tricuspid valve is not well visualized. Doppler and Color Flow revealed no tricuspid valve regurg itation noted. There is no tricuspid valve stenosis. PULMONIC VALVE The pulmonic valve is not well visualized. Doppler and Color Flow revealed no pulmonic valvular regur gitation. There is no pulmonic valvular stenosis. GREAT VESSELS The aortic root is normal in size. The IVC is normal in size and collapses >50% with inspiration. PERICARDIAL EFFUSION There is a trace pericardial effusion. Critical Notification Critical Value: No <Conclusion> The left ventricular systolic function is normal and the ejection fraction is within normal range. Th e Ejection Fraction is >55%. There is normal LV segmental wall motion. The interatrial septum is intact with no evidence for an atrial septal defect or patent foramen ovale as noted on 2-D or Doppler imaging. No evidence of right to left shunt on suboptimal agitated saline study. Signed by : Rolando Abbott, Electronically Approved : 07/24/2018 16:42:01
--- NOTE | 2018-07-24 17:43 | NUR ---
Hold flu vaccination relate to TPA administered within 24hours.
--- NOTE | 2018-07-24 21:54 | CONS ---
DATE OF CONSULTATION: 07/24/2018 CHIEF COMPLAINT: Vertebral artery dissection and stroke. HISTORY OF PRESENT ILLNESS: The patient is a 57-year-old male who presented to the hospital earlier this morning with symptoms of dizziness, left facial numbness and left arm numbness. He was evaluated by the Emergency Department with guidance from Neurology and TPA was given after his head CT was negative. A CT angiogram of the head and neck was performed, which shows the carotid arteries are normal, they comment on a dissection versus severe stenosis of the left intracranial vertebral artery. Vascular Surgery was consulted. The patient reports no history of strokes prior to this event. He states that his face on the left side is still numb and he still has tingling in his left arm and hand. REVIEW OF SYSTEMS: Otherwise, negative. PAST MEDICAL HISTORY: Includes hypertension. PAST SURGICAL HISTORY: None. FAMILY HISTORY: Significant for coronary artery disease. SOCIAL HISTORY: The patient smokes on a daily basis. He occasionally uses alcohol. MEDICATIONS: Please see his full MAR. At home, he is on TriCor and lisinopril. ALLERGIES: INCLUDE HONEY. PHYSICAL EXAMINATION: GENERAL: The patient is awake and alert. He is currently in no apparent distress. VITAL SIGNS: His most recent blood pressure is 148/102, pulse of 78, respirations 20. He is 98% on 2 liters nasal cannula. NECK: Supple with no carotid bruits. HEART: Regular rate and rhythm without murmurs. CHEST: He has bilateral breath sounds to auscultation. ABDOMEN: Soft, nondistended and nontender. EXTREMITIES: His bilateral upper extremities are warm without edema and palpable radial pulses. His bilateral lower extremities are warm without edema or tissue breakdown and palpable pedal pulses. NEUROLOGIC: He is awake and alert, oriented x 3. He does have numbness in the left side of his face. His face is symmetric. He has strengths in both of his arms, but does have decreased sensation in the left arm and hand. He has good strength in his lower legs. IMPRESSION: CT angiogram findings suspicious for left intracranial vertebral artery dissection versus severe stenosis with neurologic symptoms of left facial numbness and left arm numbness. PLAN: The patient has neurologic symptoms of left facial numbness and left arm numbness. He has no intracranial bleed or acute infarct on his head CT. There is comment on a remote right caudate lacunar infarct. CT angiogram of the head and neck shows the carotid arteries have no significant stenosis or occlusion, they note a left intracranial vertebral artery dissection versus severe stenosis. From a vascular surgical standpoint, the carotid arteries are widely patent and no intervention is needed. The intracranial vertebral artery disease cannot be adequately consulted on by myself with Vascular Surgery. This needs opinions by Neuro Interventional Radiology. These resources are not here at [facility]. I recommended to Dr. Wing with Neurology that he seek consultation from [facility] Neuro Interventional Radiology. He is going to proceed with this and possible transfer to [facility]. There is no vascular surgical intervention needed at this time. SONIA FRANCISCO MD DR: ELSY/kwan JOB#: [id number] / [id number]
[2018-07-25] VITALS (16 sets, daily range): BP systolic 84–153; BP diastolic 51–100
[2018-07-25 05:21] LABS: CHOLESTEROL 256 mg/dL (0-200); HDLC 25 mg/dL (40-60)
[2018-07-25 06:00] LABS: TRIGLYCERIDES 811 mg/dL (0-150); VLDLC 162 mg/dL (0-40)
[2018-07-25 06:12] LABS: CHOLESTEROL/HDL RATIO 10.2
--- NOTE | 2018-07-25 08:13 | PDOC ---
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 NIH score 5. Severe headache, left- sided facial numbness and weakness, reports of slurred speech but none currently. Neurology consulted and agreed with TPA, post TPA with a CTA of the head and neck showing left vertebral artery stenosis vs dissection. Consideration of transfer to [facility] for neuro-interventional IR was proposed by Vascular surgery. Blood pressure on the high side 170s to 180 systolic, which was improved Overnight his symptoms improved. Blood pressure improved as well. His son is bedside today discussing his need to cease smoking. He is a little anxious about MRI CTA IMPRESSION: 1. There is focal high-grade stenosis involving the intracranial segment of the left vertebral artery versus vertebral dissection. There is reconstitution of the left vertebral artery distally, likely secondary to retrograde flow from the right vertebral artery. Right vertebral artery is dominant. 2. There is no hemodynamically significant stenosis involving the cervical carotid vessels. Mild stenosis is identified at the origin of the petrous segment of the left internal carotid artery. 3. Mild paraseptal emphysema. Addendum to CT of the head - shows no acute intracerebral hemorrhage but maybe remote stroke in the right caudate head Plan: Lipid lowering - already tried fenofibrate + OTC fish oil and statin. his triglycerides should be lowered with prescription fish oil. will give script. High intensity statin in addition to this. He has gone to [facility] endocrine previously over 12 years ago. I have mentioned repatha and praluent as possibly necessary drugs in the future. Smoking cessation BP control MRI today Start jil kumar. Have d/w neuro D/C tomorrow morning if still stable Vitals Vitals Vital Signs Date Time Temp Pulse Resp B/P (MAP) Pulse Ox O2 Delivery O2 Flow Rate FiO2 07/25/18 07:00 77 16 93/56 (68) 97 Room Air 07/25/18 04:00 98.5 98.5 07/24/18 20:00 2.0 Physical Exam General: Alert, Oriented X3, Cooperative, No acute distress, Other (weak looking and has a towel over his forehead) Heart: Regular rate, Normal S1, Normal S2, No murmurs Lungs: Clear, Wheezing Abdomen: Normal bowel sounds, Soft, No tenderness, No hepatosplenomegaly, No masses Extremities: No clubbing, No cyanosis, No edema, Normal pulses, No tenderness/ swelling Skin: No rashes, No breakdown, No significant lesion Labs LABS Laboratory Tests Test 07/24/18 09:17 07/24/18 09:18 07/25/18 04:00 Glucose (Fingerstick) 173 mg/dL (70-99) White Blood Count 11.6 x10^3/uL (4.0-11.0) Red Blood Count 5.71 x10^6/uL (4.30-5.70) Hemoglobin 17.8 g/dL (13.0-17.5) Hematocrit 51.4 % (39.0-53.0) Mean Corpuscular Volume 89 fL (79-100) Mean Corpuscular Hemoglobin 32 pg (25-35) Mean Corpuscular Hemoglobin Concent 36 g/dL (31-37) Red Cell Distribution Width 13.2 % (11.5-14.5) Platelet Count 299 x10^3/uL (140-400) Prothrombin Time 12.8 SEC (11.7-14.0) Prothromb Time International Ratio 1.0 (0.8-1.1) Activated Partial Thromboplast Time 27 SEC (24-38) Sodium Level 137 mmol/L (136-145) Potassium Level 3.9 mmol/L (3.5-5.1) Chloride Level 102 mmol/L (98-107) Carbon Dioxide Level 25 mmol/L (21-32) Anion Gap 10 (6-14) Blood Urea Nitrogen 13 mg/dL (8-26) Creatinine 1.0 mg/dL (0.7-1.3) Estimated GFR (Cockcroft-Gault) 77.0 BUN/Creatinine Ratio 13 (6-20) Glucose Level 171 mg/dL (70-99) Calcium Level 9.0 mg/dL (8.5-10.1) Total Bilirubin 0.5 mg/dL (0.2-1.0) Aspartate Amino Transf (AST/SGOT) 17 U/L (15-37) Alanine Aminotransferase (ALT/SGPT) 26 U/L (16-63) Alkaline Phosphatase 83 U/L (46-116) Troponin I Quantitative < 0.017 ng/mL (0.000-0.055) Total Protein 7.1 g/dL (6.4-8.2) Albumin 3.8 g/dL (3.4-5.0) Albumin/Globulin Ratio 1.2 (1.0-1.7) Triglycerides Level 811 mg/dL (0-150) Cholesterol Level 256 mg/dL (0-200) LDL Cholesterol, Calculated mg/dL (0-100) VLDL Cholesterol, Calculated 162 mg/dL (0-40) Non-HDL Cholesterol Calculated 231 mg/dL (0-129) HDL Cholesterol 25 mg/dL (40-60) Cholesterol/HDL Ratio 10.2 Comment Review of Relevant I have reviewed the following items eduardo (where applicable) has been applied. Labs Laboratory Tests Test 07/24/18 09:17 07/24/18 09:18 07/25/18 04:00 Glucose (Fingerstick) 173 mg/dL (70-99) White Blood Count 11.6 x10^3/uL (4.0-11.0) Red Blood Count 5.71 x10^6/uL (4.30-5.70) Hemoglobin 17.8 g/dL (13.0-17.5) Hematocrit 51.4 % (39.0-53.0) Mean Corpuscular Volume 89 fL (79-100) Mean Corpuscular Hemoglobin 32 pg (25-35) Mean Corpuscular Hemoglobin Concent 36 g/dL (31-37) Red Cell Distribution Width 13.2 % (11.5-14.5) Platelet Count 299 x10^3/uL (140-400) Prothrombin Time 12.8 SEC (11.7-14.0) Prothromb Time International Ratio 1.0 (0.8-1.1) Activated Partial Thromboplast Time 27 SEC (24-38) Sodium Level 137 mmol/L (136-145) Potassium Level 3.9 mmol/L (3.5-5.1) Chloride Level 102 mmol/L (98-107) Carbon Dioxide Level 25 mmol/L (21-32) Anion Gap 10 (6-14) Blood Urea Nitrogen 13 mg/dL (8-26) Creatinine 1.0 mg/dL (0.7-1.3) Estimated GFR (Cockcroft-Gault) 77.0 BUN/Creatinine Ratio 13 (6-20) Glucose Level 171 mg/dL (70-99) Calcium Level 9.0 mg/dL (8.5-10.1) Total Bilirubin 0.5 mg/dL (0.2-1.0) Aspartate Amino Transf (AST/SGOT) 17 U/L (15-37) Alanine Aminotransferase (ALT/SGPT) 26 U/L (16-63) Alkaline Phosphatase 83 U/L (46-116) Troponin I Quantitative < 0.017 ng/mL (0.000-0.055) Total Protein 7.1 g/dL (6.4-8.2) Albumin 3.8 g/dL (3.4-5.0) Albumin/Globulin Ratio 1.2 (1.0-1.7) Triglycerides Level 811 mg/dL (0-150) Cholesterol Level 256 mg/dL (0-200) LDL Cholesterol, Calculated mg/dL (0-100) VLDL Cholesterol, Calculated 162 mg/dL (0-40) Non-HDL Cholesterol Calculated 231 mg/dL (0-129) HDL Cholesterol 25 mg/dL (40-60) Cholesterol/HDL Ratio 10.2 Laboratory Tests Test 07/24/18 09:17 07/24/18 09:18 07/25/18 04:00 Glucose (Fingerstick) 173 mg/dL (70-99) White Blood Count 11.6 x10^3/uL (4.0-11.0) Red Blood Count 5.71 x10^6/uL (4.30-5.70) Hemoglobin 17.8 g/dL (13.0-17.5) Hematocrit 51.4 % (39.0-53.0) Mean Corpuscular Volume 89 fL (79-100) Mean Corpuscular Hemoglobin 32 pg (25-35) Mean Corpuscular Hemoglobin Concent 36 g/dL (31-37) Red Cell Distribution Width 13.2 % (11.5-14.5) Platelet Count 299 x10^3/uL (140-400) Prothrombin Time 12.8 SEC (11.7-14.0) Prothromb Time International Ratio 1.0 (0.8-1.1) Activated Partial Thromboplast Time 27 SEC (24-38) Sodium Level 137 mmol/L (136-145) Potassium Level 3.9 mmol/L (3.5-5.1) Chloride Level 102 mmol/L (98-107) Carbon Dioxide Level 25 mmol/L (21-32) Anion Gap 10 (6-14) Blood Urea Nitrogen 13 mg/dL (8-26) Creatinine 1.0 mg/dL (0.7-1.3) Estimated GFR (Cockcroft-Gault) 77.0 BUN/Creatinine Ratio 13 (6-20) Glucose Level 171 mg/dL (70-99) Calcium Level 9.0 mg/dL (8.5-10.1) Total Bilirubin 0.5 mg/dL (0.2-1.0) Aspartate Amino Transf (AST/SGOT) 17 U/L (15-37) Alanine Aminotransferase (ALT/SGPT) 26 U/L (16-63) Alkaline Phosphatase 83 U/L (46-116) Troponin I Quantitative < 0.017 ng/mL (0.000-0.055) Total Protein 7.1 g/dL (6.4-8.2) Albumin 3.8 g/dL (3.4-5.0) Albumin/Globulin Ratio 1.2 (1.0-1.7) Triglycerides Level 811 mg/dL (0-150) Cholesterol Level 256 mg/dL (0-200) LDL Cholesterol, Calculated mg/dL (0-100) VLDL Cholesterol, Calculated 162 mg/dL (0-40) Non-HDL Cholesterol Calculated 231 mg/dL (0-129) HDL Cholesterol 25 mg/dL (40-60) Cholesterol/HDL Ratio 10.2 Medications Current Medications Alteplase, Recombinant 8.1 ml @ 486 mls/hr 1X ONCE IV Last administered on at 09:50; Start 07/24/18 at 09:40; Stop 07/24/18 at 09:41; Status DC Alteplase, Recombinant 73 ml @ 73 mls/hr Q1H IV Last administered on 07/24/18at 09:54; Start 07/24/18 at 09:41; Stop 07/24/18 at 10:40; Status DC Sodium Chloride 50 ml @ 200 mls/hr 1X ONCE IV Last administered on 07/24/18at 10:39; Start 07/24/18 at 10:40; Stop 07/24/18 at 10:54; Status DC Hydralazine HCl (Apresoline Inj) 10 mg 1X ONCE IVP Last administered on at 10:07; Start 07/24/18 at 09:45; Stop 07/24/18 at 09:46; Status DC Iohexol (Omnipaque 300 Mg/ml) 75 ml 1X ONCE IV ; Start 07/24/18 at 10:15; Stop 07/24/18 at 10:16; Status DC Iohexol (Omnipaque 350 Mg/ml) 75 ml 1X ONCE IV Last administered on 07/24/18at 10:21; Start 07/24/18 at 10:15; Stop 07/24/18 at 10:16; Status DC Info (CONTRAST GIVEN -- Rx MONITORING) 1 each PRN DAILY PRN MC SEE COMMENTS; Start 07/24/18 at 10:15; Stop 07/26/18 at 10:14 Hydralazine HCl (Apresoline Inj) 10 mg 1X ONCE IVP Last administered on at 10:37; Start 07/24/18 at 10:45; Stop 07/24/18 at 10:46; Status DC Labetalol HCl (Normodyne Iv Push) 10 mg PRN Q10MIN PRN IVP HYPERTENSION, SEE COMMENTS; Start 07/24/18 at 11:15 Nicardipine HCl 50 mg/Sodium Chloride 250 ml @ 25 mls/hr CONT PRN PRN IV HYPERTENSION, SEE COMMENTS; Start 07/24/18 at 11:15 Acetaminophen (Tylenol) 650 mg PRN Q6HRS PRN PO MILD PAIN / TEMP; Start at 11:15 Acetaminophen (Tylenol Supp) 325 mg PRN Q6HRS PRN SD MILD PAIN / TEMP; Start at 11:15 Ondansetron HCl (Zofran) 4 mg PRN Q6HRS PRN IV NAUSEA/VOMITING; Start 07/24/18 at 11:15 Morphine Sulfate (Morphine Sulfate) 2 mg 1X ONCE IV Last administered on at 11:47; Start 07/24/18 at 11:45; Stop 07/24/18 at 11:46; Status DC Morphine Sulfate (Morphine Sulfate) 2 mg PRN Q2HR PRN IV PAIN Last administered on 07/24/18at 11:42; Start 07/24/18 at 12:00 Influenza Virus Vaccine (Afluria Trivalent [id number] Syringe) 0.5 ml ONCE ONCE VAX IM ; Start 07/24/18 at 13:16; Stop 07/24/18 at 13:17; Status DC Nicotine (Nicoderm Cq 21mg) 1 patch PRN DAILY PRN TD SMOKING CESSATION; Start 07/24/18 at 14:00 Active Scripts Active Reported Lisinopril 10 Mg Tablet 10 Mg PO DAILY Vitals/I & O Vital Sign - Last 24 Hours 07/24/18 07/24/18 07/24/18 07/24/18 09:09 09:26 09:29 09:44 Temp 97.4 97.4 Pulse 59 56 57 58 Resp 16 16 16 16 B/P (MAP) 193/117 (142) Pulse Ox 98 97 98 98 O2 Delivery Room Air 07/24/18 07/24/18 07/24/18 07/24/18 09:54 10:01 10:01 10:07 Pulse 58 57 50 57 Resp 12 12 12 B/P (MAP) 183/98 Pulse Ox 98 98 98 07/24/18 07/24/18 07/24/18 07/24/18 10:09 10:17 10:25 10:29 Pulse 50 62 76 64 Resp 12 16 16 16 Pulse Ox 98 98 97 97 07/24/18 07/24/18 07/24/18 07/24/18 10:35 10:37 10:45 10:55 Pulse 70 72 74 78 Resp 12 12 16 B/P (MAP) 192/97 Pulse Ox 97 96 97 07/24/18 07/24/18 07/24/18 07/24/18 11:00 11:30 11:42 11:45 Temp 97.6 97.6 Pulse 78 66 75 Resp 20 20 18 20 B/P (MAP) 149/93 (111) 192/104 (133) 200/116 (144) Pulse Ox 99 99 97 99 O2 Delivery Room Air Room Air Room Air O2 Flow Rate 2.0 07/24/18 07/24/18 07/24/18 07/24/18 11:47 12:00 12:00 12:15 Pulse 76 76 Resp 18 20 20 B/P (MAP) 180/101 (127) 163/98 (119) Pulse Ox 97 98 99 O2 Delivery Nasal Cannula Room Air Nasal Cannula Room Air O2 Flow Rate 2.0 2.0 07/24/18 07/24/18 07/24/18 07/24/18 12:22 12:30 12:45 13:00 Pulse 76 78 78 Resp 18 20 20 20 B/P (MAP) 183/107 (132) 178/105 (129) 175/97 (123) Pulse Ox 97 97 97 98 O2 Delivery Nasal Cannula Room Air Room Air Room Air O2 Flow Rate 2.0 07/24/18 07/24/18 07/24/18 07/24/18 13:30 13:32 14:00 14:05 Pulse 78 76 Resp 20 18 20 16 B/P (MAP) 148/102 (117) 164/96 (118) Pulse Ox 98 97 99 97 O2 Delivery Room Air Nasal Cannula Nasal Cannula O2 Flow Rate 2.0 2.0 2.0 07/24/18 07/24/18 07/24/18 07/24/18 14:30 15:00 15:30 16:00 Pulse 70 80 80 Resp 20 20 20 B/P (MAP) 162/100 (120) 157/94 (115) 160/90 (113) Pulse Ox 98 98 97 O2 Delivery Nasal Cannula Nasal Cannula Nasal Cannula Nasal Cannula O2 Flow Rate 2.0 2.0 2.0 2.0 07/24/18 07/24/18 07/24/18 07/24/18 16:00 16:30 17:00 17:30 Pulse 82 74 82 88 Resp 20 20 20 18 B/P (MAP) 147/91 (109) 143/101 (115) 149/96 (113) 135/89 (104) Pulse Ox 98 97 97 97 O2 Delivery Nasal Cannula Nasal Cannula Nasal Cannula Nasal Cannula O2 Flow Rate 2.0 2.0 2.0 2.0 07/24/18 07/24/18 07/24/18 07/24/18 18:00 19:00 20:00 20:00 Temp 97.5 97.5 Pulse 94 101 98 Resp 18 16 18 B/P (MAP) 139/73 (95) 135/85 (102) 114/78 (90) Pulse Ox 98 98 98 O2 Delivery Nasal Cannula Nasal Cannula Nasal Cannula Nasal Cannula O2 Flow Rate 2.0 2.0 2.0 2.0 1/21/19 07/24/18 07/24/18 07/24/18 21:00 22:00 23:00 23:36 Pulse 100 90 82 Resp 20 14 13 B/P (MAP) 113/63 (80) 107/72 (84) 92/69 (77) Pulse Ox 97 95 93 O2 Delivery Room Air Room Air Room Air Room Air 07/25/18 07/25/18 07/25/18 07/25/18 00:00 01:00 02:00 03:00 Temp 99.2 99.2 Pulse 84 83 86 79 Resp 20 15 16 15 B/P (MAP) 84/51 (62) 92/54 (67) 92/61 (71) 103/59 (74) Pulse Ox 93 95 96 95 O2 Delivery Room Air Room Air Room Air Room Air 07/25/18 07/25/18 07/25/18 07/25/18 03:39 04:00 05:00 06:00 Temp 98.5 98.5 Pulse 76 77 80 Resp 13 14 19 B/P (MAP) 103/62 (76) 107/54 (71) 94/55 (68) Pulse Ox 95 98 98 O2 Delivery Room Air Room Air Room Air Room Air 07/25/18 07:00 Pulse 77 Resp 16 B/P (MAP) 93/56 (68) Pulse Ox 97 O2 Delivery Room Air Intake and Output 07/24/18 07/24/18 07/25/18 15:01 23:01 07:01 Intake Total 281.1 ml 490 ml 450 ml Output Total 700 ml 450 ml Balance -418.9 ml 40 ml 450 ml JULIO LOPEZ MD Jul 25, 2018 08:13
--- NOTE | 2018-07-25 10:24 | PDOC ---
PROGRESS NOTES Assessment Left vertebral artery dissection. Brainstem stroke symptoms and headache, resolved. History of hypertension Hyperlipidemia, was on atorvastatin and fenofibrate in past. Plan Vascular surgery consult appreciated, as I documented yesterday, I discussed the case with Dr. Dickerson at who agreed there was no need for transfer. I discussed risk, benefits, alternatives, side effects and would like the patient to be on Eliquis for 6 months. I particularly explained that this was an off-label use for Eliquis MRI brain today Rehabilitation modalities. Blood pressure control as per stroke orders. Fully discussed with patient and his family. Discussed with Dr. Cancino Subjective Feels much better, no headache or numbness Objective Vital Signs Date Time Temp Pulse Resp B/P (MAP) Pulse Ox O2 Delivery O2 Flow Rate FiO2 07/25/18 07:00 77 16 93/56 (68) 97 Room Air 07/25/18 04:00 98.5 98.5 07/24/18 20:00 2.0 Intake and Output 07/25/18 07:01 Intake Total 1221.1 ml Output Total 1150 ml Balance 71.1 ml Intake Oral 1140 ml IV Total 81.1 ml Output Urine Total 1150 ml PHYSICAL EXAM Alert. Oriented to time, place and person. PERRL. EOMI. CN: no focal findings. Muscle tone: normal. Muscle strength: 5/5 DTR: 2+ Plantar reflex: flexor Gait: not examined in bed. Sensory exam: no abnormal findings. No cerebellar signs elicited. Review of Relevant I have reviewed the following items eduardo (where applicable) has been applied. Labs Laboratory Tests Test 07/24/18 09:17 07/24/18 09:18 07/25/18 04:00 Glucose (Fingerstick) 173 mg/dL (70-99) White Blood Count 11.6 x10^3/uL (4.0-11.0) Red Blood Count 5.71 x10^6/uL (4.30-5.70) Hemoglobin 17.8 g/dL (13.0-17.5) Hematocrit 51.4 % (39.0-53.0) Mean Corpuscular Volume 89 fL (79-100) Mean Corpuscular Hemoglobin 32 pg (25-35) Mean Corpuscular Hemoglobin Concent 36 g/dL (31-37) Red Cell Distribution Width 13.2 % (11.5-14.5) Platelet Count 299 x10^3/uL (140-400) Prothrombin Time 12.8 SEC (11.7-14.0) Prothromb Time International Ratio 1.0 (0.8-1.1) Activated Partial Thromboplast Time 27 SEC (24-38) Sodium Level 137 mmol/L (136-145) Potassium Level 3.9 mmol/L (3.5-5.1) Chloride Level 102 mmol/L (98-107) Carbon Dioxide Level 25 mmol/L (21-32) Anion Gap 10 (6-14) Blood Urea Nitrogen 13 mg/dL (8-26) Creatinine 1.0 mg/dL (0.7-1.3) Estimated GFR (Cockcroft-Gault) 77.0 BUN/Creatinine Ratio 13 (6-20) Glucose Level 171 mg/dL (70-99) Calcium Level 9.0 mg/dL (8.5-10.1) Total Bilirubin 0.5 mg/dL (0.2-1.0) Aspartate Amino Transf (AST/SGOT) 17 U/L (15-37) Alanine Aminotransferase (ALT/SGPT) 26 U/L (16-63) Alkaline Phosphatase 83 U/L (46-116) Troponin I Quantitative < 0.017 ng/mL (0.000-0.055) Total Protein 7.1 g/dL (6.4-8.2) Albumin 3.8 g/dL (3.4-5.0) Albumin/Globulin Ratio 1.2 (1.0-1.7) Triglycerides Level 811 mg/dL (0-150) Cholesterol Level 256 mg/dL (0-200) LDL Cholesterol, Calculated mg/dL (0-100) VLDL Cholesterol, Calculated 162 mg/dL (0-40) Non-HDL Cholesterol Calculated 231 mg/dL (0-129) HDL Cholesterol 25 mg/dL (40-60) Cholesterol/HDL Ratio 10.2 Laboratory Tests Test 07/25/18 04:00 Triglycerides Level 811 mg/dL (0-150) Cholesterol Level 256 mg/dL (0-200) LDL Cholesterol, Calculated mg/dL (0-100) VLDL Cholesterol, Calculated 162 mg/dL (0-40) Non-HDL Cholesterol Calculated 231 mg/dL (0-129) HDL Cholesterol 25 mg/dL (40-60) Cholesterol/HDL Ratio 10.2 Medications Current Medications Alteplase, Recombinant 8.1 ml @ 486 mls/hr 1X ONCE IV Last administered on at 09:50; Start 07/24/18 at 09:40; Stop 07/24/18 at 09:41; Status DC Alteplase, Recombinant 73 ml @ 73 mls/hr Q1H IV Last administered on 07/24/18at 09:54; Start 07/24/18 at 09:41; Stop 07/24/18 at 10:40; Status DC Sodium Chloride 50 ml @ 200 mls/hr 1X ONCE IV Last administered on 07/24/18at 10:39; Start 07/24/18 at 10:40; Stop 07/24/18 at 10:54; Status DC Hydralazine HCl (Apresoline Inj) 10 mg 1X ONCE IVP Last administered on at 10:07; Start 07/24/18 at 09:45; Stop 07/24/18 at 09:46; Status DC Iohexol (Omnipaque 300 Mg/ml) 75 ml 1X ONCE IV ; Start 07/24/18 at 10:15; Stop 07/24/18 at 10:16; Status DC Iohexol (Omnipaque 350 Mg/ml) 75 ml 1X ONCE IV Last administered on 07/24/18at 10:21; Start 07/24/18 at 10:15; Stop 07/24/18 at 10:16; Status DC Info (CONTRAST GIVEN -- Rx MONITORING) 1 each PRN DAILY PRN MC SEE COMMENTS; Start 07/24/18 at 10:15; Stop 07/26/18 at 10:14 Hydralazine HCl (Apresoline Inj) 10 mg 1X ONCE IVP Last administered on at 10:37; Start 07/24/18 at 10:45; Stop 07/24/18 at 10:46; Status DC Labetalol HCl (Normodyne Iv Push) 10 mg PRN Q10MIN PRN IVP HYPERTENSION, SEE COMMENTS; Start 07/24/18 at 11:15 Nicardipine HCl 50 mg/Sodium Chloride 250 ml @ 25 mls/hr CONT PRN PRN IV HYPERTENSION, SEE COMMENTS; Start 07/24/18 at 11:15 Acetaminophen (Tylenol) 650 mg PRN Q6HRS PRN PO MILD PAIN / TEMP; Start at 11:15 Acetaminophen (Tylenol Supp) 325 mg PRN Q6HRS PRN [place] MILD PAIN / TEMP; Start at 11:15 Ondansetron HCl (Zofran) 4 mg PRN Q6HRS PRN IV NAUSEA/VOMITING; Start 07/24/18 at 11:15 Morphine Sulfate (Morphine Sulfate) 2 mg 1X ONCE IV Last administered on at 11:47; Start 07/24/18 at 11:45; Stop 07/24/18 at 11:46; Status DC Morphine Sulfate (Morphine Sulfate) 2 mg PRN Q2HR PRN IV PAIN Last administered on 07/24/18at 11:42; Start 07/24/18 at 12:00 Influenza Virus Vaccine (Afluria Trivalent [id number] Syringe) 0.5 ml ONCE ONCE VAX IM ; Start 07/24/18 at 13:16; Stop 07/24/18 at 13:17; Status DC Nicotine (Nicoderm Cq 21mg) 1 patch PRN DAILY PRN TD SMOKING CESSATION; Start 07/24/18 at 14:00 Fish Oil (Fish Oil) 1,000 mg DAILY PO ; Start 07/25/18 at 09:15 Atorvastatin Calcium (Lipitor) 40 mg QHS PO ; Start 07/25/18 at 21:00 Active Scripts Active Reported Lisinopril 10 Mg Tablet 10 Mg PO DAILY Vitals/I & O Vital Sign - Last 24 Hours 07/24/18 07/24/18 07/24/18 07/24/18 10:17 10:25 10:29 10:35 Pulse 62 76 64 70 Resp 16 16 16 12 Pulse Ox 98 97 97 97 07/24/18 07/24/18 07/24/18 07/24/18 10:37 10:45 10:55 11:00 Temp 97.6 97.6 Pulse 72 74 78 78 Resp 12 16 20 B/P (MAP) 192/97 149/93 (111) Pulse Ox 96 97 99 O2 Delivery Room Air 07/24/18 07/24/18 07/24/18 07/24/18 11:30 11:42 11:45 11:47 Pulse 66 75 Resp 20 18 20 18 B/P (MAP) 192/104 (133) 200/116 (144) Pulse Ox 99 97 99 97 O2 Delivery Room Air Room Air Nasal Cannula O2 Flow Rate 2.0 2.0 07/24/18 07/24/18 07/24/18 07/24/18 12:00 12:00 12:15 12:22 Pulse 76 76 Resp 20 20 18 B/P (MAP) 180/101 (127) 163/98 (119) Pulse Ox 98 99 97 O2 Delivery Room Air Nasal Cannula Room Air Nasal Cannula O2 Flow Rate 2.0 2.0 07/24/18 07/24/18 07/24/18 07/24/18 12:30 12:45 13:00 13:30 Pulse 76 78 78 78 Resp 20 20 20 20 B/P (MAP) 183/107 (132) 178/105 (129) 175/97 (123) 148/102 (117) Pulse Ox 97 97 98 98 O2 Delivery Room Air Room Air Room Air Room Air 07/24/18 07/24/18 07/24/18 07/24/18 13:32 14:00 14:05 14:30 Pulse 76 70 Resp 18 20 16 20 B/P (MAP) 164/96 (118) 162/100 (120) Pulse Ox 97 99 97 98 O2 Delivery Nasal Cannula Nasal Cannula Nasal Cannula O2 Flow Rate 2.0 2.0 2.0 2.0 07/24/18 07/24/18 07/24/18 07/24/18 15:00 15:30 16:00 16:00 Pulse 80 80 82 Resp 20 20 20 B/P (MAP) 157/94 (115) 160/90 (113) 147/91 (109) Pulse Ox 98 97 98 O2 Delivery Nasal Cannula Nasal Cannula Nasal Cannula Nasal Cannula O2 Flow Rate 2.0 2.0 2.0 2.0 07/24/18 07/24/18 07/24/18 07/24/18 16:30 17:00 17:30 18:00 Pulse 74 82 88 94 Resp 20 20 18 18 B/P (MAP) 143/101 (115) 149/96 (113) 135/89 (104) 139/73 (95) Pulse Ox 97 97 97 98 O2 Delivery Nasal Cannula Nasal Cannula Nasal Cannula Nasal Cannula O2 Flow Rate 2.0 2.0 2.0 2.0 07/24/18 07/24/18 07/24/18 07/24/18 19:00 20:00 20:00 21:00 Temp 97.5 97.5 Pulse 101 98 100 Resp 16 18 20 B/P (MAP) 135/85 (102) 114/78 (90) 113/63 (80) Pulse Ox 98 98 97 O2 Delivery Nasal Cannula Nasal Cannula Nasal Cannula Room Air O2 Flow Rate 2.0 2.0 2.0 07/24/18 07/24/18 07/24/18 07/25/18 22:00 23:00 23:36 00:00 Temp 99.2 99.2 Pulse 90 82 84 Resp 14 13 20 B/P (MAP) 107/72 (84) 92/69 (77) 84/51 (62) Pulse Ox 95 93 93 O2 Delivery Room Air Room Air Room Air Room Air 07/25/18 07/25/18 07/25/18 07/25/18 01:00 02:00 03:00 03:39 Pulse 83 86 79 Resp 15 16 15 B/P (MAP) 92/54 (67) 92/61 (71) 103/59 (74) Pulse Ox 95 96 95 O2 Delivery Room Air Room Air Room Air Room Air 07/25/18 07/25/18 07/25/18 07/25/18 04:00 05:00 06:00 07:00 Temp 98.5 98.5 Pulse 76 77 80 77 Resp 13 14 19 16 B/P (MAP) 103/62 (76) 107/54 (71) 94/55 (68) 93/56 (68) Pulse Ox 95 98 98 97 O2 Delivery Room Air Room Air Room Air Room Air Intake and Output 07/24/18 07/24/18 07/25/18 15:01 23:01 07:01 Intake Total 281.1 ml 490 ml 450 ml Output Total 700 ml 450 ml Balance -418.9 ml 40 ml 450 ml Images Echo: LEFT VENTRICLE The left ventricle is normal size. There is mild to moderate concentric left ventricular hypertrophy. The left ventricular systolic function is normal and the ejection fraction is within normal range. The Ejection Fraction is >55%. There is normal LV segmental wall motion. Transmitral Doppler flow pattern is Grade I-abnormal relaxation pattern. RIGHT VENTRICLE The right ventricle is normal size. There is normal right ventricular wall thickness. The right ventricular systolic function is normal. ATRIA The left atrium size is normal. The right atrium size is normal. The interatrial septum is intact with no evidence for an atrial septal defect or patent foramen ovale as noted on 2-D or Doppler imaging. No evidence of right to left shunt on suboptimal agitated saline study. AORTIC VALVE The aortic valve is not well visualized. Doppler and Color Flow revealed no significant aortic regurgitation. There is no significant aortic valvular stenosis. MITRAL VALVE The mitral valve is normal in structure and function. There is no evidence of mitral valve prolapse. There is no mitral valve stenosis. Doppler and Color- flow revealed trace mitral regurgitation. TRICUSPID VALVE The tricuspid valve is not well visualized. Doppler and Color Flow revealed no tricuspid valve regurgitation noted. There is no tricuspid valve stenosis. PULMONIC VALVE The pulmonic valve is not well visualized. Doppler and Color Flow revealed no pulmonic valvular regurgitation. There is no pulmonic valvular stenosis. GREAT VESSELS The aortic root is normal in size. The IVC is normal in size and collapses >50% with inspiration. PERICARDIAL EFFUSION There is a trace pericardial effusion. Critical Notification Critical Value: No <Conclusion> The left ventricular systolic function is normal and the ejection fraction is within normal range. The Ejection Fraction is >55%. There is normal LV segmental wall motion. The interatrial septum is intact with no evidence for an atrial septal defect or patent foramen ovale as noted on 2-D or Doppler imaging. No evidence of right to left shunt on suboptimal agitated saline study. BRENDA BRITT MD Jul 25, 2018 10:24
--- NOTE | 2018-07-25 12:13 | RAD ---
MRI Brain without contrast History: Left side weakness for one day, TPA given 24 hours ago, history of vertebral dissection Technique: Multiplanar, multisequential noncontrast MR imaging was performed of the brain. Comparison: There is no previous similar exam available, correlation made with July 24, 2018 CTA exams and head CT Findings: There is some motion degradation. There is approximate 0.9 cm focus of restricted diffusion of the left cerebellum, subtle associated FLAIR and T2 hyperintense signal. Allowing for motion, no other convincing restricted diffusion is identified. There is no midline shift. Ventricles, sulci, cisterns are within normal limits in size and configuration. There is minimal T2 and FLAIR hyperintense abnormality of the supratentorial white matter greatest of the frontal lobes and about the occipital horns. There is mild T2 and FLAIR hyperintense signal of the left darius. Small foci of signal change of the bilateral basal ganglia may be due to prominent perivascular spaces, not associated with significant gliosis. There is some signal alteration of the left vertebral artery flow-void otherwise difficult to accurately characterize. Mastoid air cells are aerated. There is patchy mild ethmoid air cell mucosal thickening greater on the left. Cerebellar tonsils are normal in location. There is no significant hemosiderin deposition of the brain parenchyma. Impression: 1. There is a small recent acute or early subacute infarct of the left cerebellum. Minimal T2 and FLAIR hyperintense signal abnormality of the supratentorial parenchyma and left darius is nonspecific although may be due to chronic microvascular ischemic disease. FOR INTERNAL CODING PURPOSES Critical result: Findings discussed with patient's nurse Christi at 07/25/2018 12:08 PM. RESULT CODE: (C) Electronically signed by: Alberto Araiza MD (07/25/2018 12:09 PM) [id number]
[2018-07-25] MEDS: OMEGA-3 FATTY ACIDS/FISH OIL 1,000 MG CAPSULE. PO SCH (13:46)
[2018-07-25] MEDS: FENOFIBRATE 54 MG TABLET. PO SCH (13:47)
[2018-07-25] MEDS: APIXABAN 5 MG TABLET. PO SCH ×2 (13:47→20:34)
[2018-07-25] MEDS ORDERED: ANTI-COAG MONITOR BY PHARMACY. MC PRN (14:15)
--- NOTE | 2018-07-25 14:46 | NUR ---
SS following up with discharge planning. PT/OT evaluated pt and recommended home independent. Pt is currently on room air. No discharge needs noted at this time. SS will continue to follow for pending discharge needs.
--- NOTE | 2018-07-25 17:30 | NUR ---
Patient walking around room. NIH score "0". No complaints today. Is ready to go home. Orders to transfer patient to 6s room 673. Report called to LUCERO Ernandez.
--- NOTE | 2018-07-25 18:28 | NUR ---
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
[2018-07-25] MEDS ORDERED: ATORVASTATIN CALCIUM 20 MG TABLET PO SCH (21:00)
[2018-07-25] MEDS ORDERED: ATORVASTATIN CALCIUM 40 MG TABLET. PO SCH (21:00)
[2018-07-26 03:36] VITALS: BP 131/90
[2018-07-26 07:36] VITALS: BP 136/94
[2018-07-26] MEDS: APIXABAN 5 MG TABLET. PO SCH (07:53)
[2018-07-26] MEDS: OMEGA-3 FATTY ACIDS/FISH OIL 1,000 MG CAPSULE. PO SCH (07:53)
[2018-07-26] MEDS: FENOFIBRATE 54 MG TABLET. PO SCH (07:53)
[2018-07-26 10:52] VITALS: BP 138/92
[2018-07-26] MEDS ORDERED: OMEG1CAP6 PO (11:03)
[2018-07-26] MEDS ORDERED: LISI10TA2 PO (11:03)
[2018-07-26] MEDS ORDERED: APIX5TAB PO (11:03)
[2018-07-26] MEDS ORDERED: ATOR40TA59 PO (11:03)
[2018-07-26] MEDS ORDERED: FENO54TA PO (11:03)
--- NOTE | 2018-07-26 11:06 | PDOC ---
PROGRESS NOTES Assessment Left vertebral artery dissection. Left cerebellar stroke, symptoms resolved Status-post Alteplase History of hypertension Hyperlipidemia, was on atorvastatin and fenofibrate in past. Plan Subjective Feels much better, no headache or numbness Objective Vital Signs Date Time Temp Pulse Resp B/P (MAP) Pulse Ox O2 Delivery O2 Flow Rate FiO2 07/25/18 07:00 77 16 93/56 (68) 97 Room Air 07/25/18 04:00 98.5 98.5 07/24/18 20:00 2.0 Intake and Output 07/25/18 07:01 Intake Total 1221.1 ml Output Total 1150 ml Balance 71.1 ml Intake Oral 1140 ml IV Total 81.1 ml Output Urine Total 1150 ml PHYSICAL EXAM Plan Okay for discharge Eliquis for 6 months. Does not need further ehabilitation Blood pressure control Lipid agents resumed Follow up with PCP Follow up with me in 2 months Okay to return to work on Monday 07/31 Subjective No complaints Objective Vital Signs Date Time Temp Pulse Resp B/P (MAP) Pulse Ox O2 Delivery O2 Flow Rate FiO2 07/26/18 10:52 97.4 79 16 138/92 (107) 96 Room Air 97.4 07/25/18 08:00 2.0 Intake and Output 07/26/18 07:01 Intake Total 1480 ml Output Total 500 ml Balance 980 ml Intake Oral 1480 ml Output Urine Total 500 ml # Voids 3 PHYSICAL EXAM Alert. Oriented to time, place and person. PERRL. EOMI. CN: no focal findings. Muscle tone: normal. Muscle strength: 5/5 DTR: 2+ Plantar reflex: flexor Gait: not examined in bed. Sensory exam: no abnormal findings. No cerebellar signs elicited. Review of Relevant I have reviewed the following items eduardo (where applicable) has been applied. Labs Laboratory Tests Test 07/24/18 11:15 07/25/18 04:00 Nasal Screen MRSA (PCR) Negative (Negative) Triglycerides Level 811 mg/dL (0-150) Cholesterol Level 256 mg/dL (0-200) LDL Cholesterol, Calculated mg/dL (0-100) VLDL Cholesterol, Calculated 162 mg/dL (0-40) Non-HDL Cholesterol Calculated 231 mg/dL (0-129) HDL Cholesterol 25 mg/dL (40-60) Cholesterol/HDL Ratio 10.2 Medications Current Medications Alteplase, Recombinant 8.1 ml @ 486 mls/hr 1X ONCE IV Last administered on at 09:50; Start 07/24/18 at 09:40; Stop 07/24/18 at 09:41; Status DC Alteplase, Recombinant 73 ml @ 73 mls/hr Q1H IV Last administered on 07/24/18at 09:54; Start 07/24/18 at 09:41; Stop 07/24/18 at 10:40; Status DC Sodium Chloride 50 ml @ 200 mls/hr 1X ONCE IV Last administered on 07/24/18at 10:39; Start 07/24/18 at 10:40; Stop 07/24/18 at 10:54; Status DC Hydralazine HCl (Apresoline Inj) 10 mg 1X ONCE IVP Last administered on at 10:07; Start 07/24/18 at 09:45; Stop 07/24/18 at 09:46; Status DC Iohexol (Omnipaque 300 Mg/ml) 75 ml 1X ONCE IV ; Start 07/24/18 at 10:15; Stop 07/24/18 at 10:16; Status DC Iohexol (Omnipaque 350 Mg/ml) 75 ml 1X ONCE IV Last administered on 07/24/18at 10:21; Start 07/24/18 at 10:15; Stop 07/24/18 at 10:16; Status DC Info (CONTRAST GIVEN -- Rx MONITORING) 1 each PRN DAILY PRN MC SEE COMMENTS; Start 07/24/18 at 10:15; Stop 07/26/18 at 10:14; Status DC Hydralazine HCl (Apresoline Inj) 10 mg 1X ONCE IVP Last administered on at 10:37; Start 07/24/18 at 10:45; Stop 07/24/18 at 10:46; Status DC Labetalol HCl (Normodyne Iv Push) 10 mg PRN Q10MIN PRN IVP HYPERTENSION, SEE COMMENTS; Start 07/24/18 at 11:15 Nicardipine HCl 50 mg/Sodium Chloride 250 ml @ 25 mls/hr CONT PRN PRN IV HYPERTENSION, SEE COMMENTS; Start 07/24/18 at 11:15; Stop 07/25/18 at 17:54; Status DC Acetaminophen (Tylenol) 650 mg PRN Q6HRS PRN PO MILD PAIN / TEMP; Start at 11:15 Acetaminophen (Tylenol Supp) 325 mg PRN Q6HRS PRN [place] MILD PAIN / TEMP; Start at 11:15 Ondansetron HCl (Zofran) 4 mg PRN Q6HRS PRN IV NAUSEA/VOMITING; Start 07/24/18 at 11:15 Morphine Sulfate (Morphine Sulfate) 2 mg 1X ONCE IV Last administered on at 11:47; Start 07/24/18 at 11:45; Stop 07/24/18 at 11:46; Status DC Morphine Sulfate (Morphine Sulfate) 2 mg PRN Q2HR PRN IV PAIN Last administered on 07/24/18at 11:42; Start 07/24/18 at 12:00 Influenza Virus Vaccine (Afluria Trivalent [id number] Syringe) 0.5 ml ONCE ONCE VAX IM Last administered on 07/25/18at 17:36; Start 07/24/18 at 13:16; Stop at 13:17; Status DC Nicotine (Nicoderm Cq 21mg) 1 patch PRN DAILY PRN TD SMOKING CESSATION; Start 07/24/18 at 14:00 Fish Oil (Fish Oil) 1,000 mg DAILY PO Last administered on 07/26/18at 07:53; Start 07/25/18 at 09:15 Atorvastatin Calcium (Lipitor) 40 mg QHS PO Last administered on 07/25/18at 20: 34; Start 07/25/18 at 21:00 Fenofibrate (Lofibra) 54 mg DAILY PO Last administered on 07/26/18at 07:53; Start 07/25/18 at 11:00 Atorvastatin Calcium (Lipitor) 20 mg QHS PO ; Start 07/25/18 at 21:00; Stop at 21:00; Status DC Apixaban (Eliquis) 5 mg BID PO Last administered on 07/26/18at 07:53; Start at 11:00 Info (Anti-Coagulation Monitoring By Pharmacy) 1 each PRN DAILY PRN MC SEE COMMENTS Last administered on 07/25/18at 14:16; Start 07/25/18 at 14:15 Active Scripts Active Fenofibrate 54 Mg Tablet 54 Mg PO DAILY MDD 1 Fish Oil 1,000 Mg Capsule ([place]-3 Fatty Acids/Fish Oil) 1 Each Capsule 1,000 Mg PO DAILY MDD 1 Atorvastatin Calcium 40 Mg Tablet 40 Mg PO QHS MDD 1 Eliquis (Apixaban) 5 Mg Tablet 5 Mg PO BID MDD 1 180 Days Lisinopril 10 Mg Tablet 10 Mg PO DAILY MDD 1 Vitals/I & O Vital Sign - Last 24 Hours 07/25/18 07/25/18 07/25/18 07/25/18 15:00 19:00 20:00 22:56 Temp 98.1 98.1 98.7 98.1 98.1 98.7 Pulse 60 76 79 Resp 20 20 16 B/P (MAP) 153/99 (117) 134/94 (107) 125/77 (93) Pulse Ox 98 96 95 O2 Delivery Room Air Room Air Room Air Room Air 07/26/18 07/26/18 07/26/18 07/26/18 03:36 07:13 07:36 10:52 Temp 98.4 98.6 97.4 98.4 98.6 97.4 Pulse 63 77 79 Resp 16 16 16 B/P (MAP) 131/90 (104) 136/94 (108) 138/92 (107) Pulse Ox 96 96 96 O2 Delivery Room Air Room Air Room Air Room Air Intake and Output 07/25/18 07/25/18 07/26/18 15:01 23:01 07:01 Intake Total 240 ml 640 ml 600 ml Output Total 500 ml Balance 240 ml 140 ml 600 ml Images MRI Brain without contrast There is some motion degradation. There is approximate 0.9 cm focus of restricted diffusion of the left cerebellum, subtle associated FLAIR and T2 hyperintense signal. Allowing for motion, no other convincing restricted diffusion is identified. There is no midline shift. Ventricles, sulci, cisterns are within normal limits in size and configuration. There is minimal T2 and FLAIR hyperintense abnormality of the supratentorial white matter greatest of the frontal lobes and about the occipital horns. There is mild T2 and FLAIR hyperintense signal of the left darius. Small foci of signal change of the bilateral basal ganglia may be due to prominent perivascular spaces, not associated with significant gliosis. There is some signal alteration of the left vertebral artery flow-void otherwise difficult to accurately characterize. Mastoid air cells are aerated. There is patchy mild ethmoid air cell mucosal thickening greater on the left. Cerebellar tonsils are normal in location. There is no significant hemosiderin deposition of the brain parenchyma. Impression: 1. There is a small recent acute or early subacute infarct of the left cerebellum. Minimal T2 and FLAIR hyperintense signal abnormality of the supratentorial parenchyma and left darius is nonspecific although may be due to chronic microvascular ischemic disease. BRENDA BRITT MD Jul 26, 2018 11:06
--- NOTE | 2018-07-26 11:39 | NUR ---
Discharge Note: GABRIELLA ALVAREZ [address] Discharge instructions and discharge home medications reviewed with Patient and a copy given. All questions have been answered and understanding verbalized. The following instructions and handouts were given: information about stroke education. Discontinued lines and drains: IV line in right AC removed, catheter tip intact. Patient discharged to home with self care with family, patient ambulated to discharge vehicle.
--- NOTE | 2018-07-26 11:54 | PDOC3 ---
Discharge Summary Visit Information Date of Admission: Jul 24, 2018 Date of Discharge: Jul 26, 2018 Admitting Diagnosis Comment: Left vertebral artery dissection. Left cerebellar stroke, symptoms resolved Status-post Alteplase History of hypertension Hyperlipidemia, was on atorvastatin and fenofibrate in past. Brief Hospital Course Allergies Allergies Coded Allergies Type Severity Reaction Last Updated Verified venom-honey bee Allergy Intermediate 05/04/15 No Vital Signs Vital Signs Date Time Temp Pulse Resp B/P (MAP) Pulse Ox O2 Delivery O2 Flow Rate FiO2 07/26/18 10:52 97.4 79 16 138/92 (107) 96 Room Air 97.4 07/25/18 08:00 2.0 Lab Results Laboratory Tests Test 07/25/18 04:00 Triglycerides Level 811 mg/dL (0-150) Cholesterol Level 256 mg/dL (0-200) LDL Cholesterol, Calculated mg/dL (0-100) VLDL Cholesterol, Calculated 162 mg/dL (0-40) Non-HDL Cholesterol Calculated 231 mg/dL (0-129) HDL Cholesterol 25 mg/dL (40-60) Cholesterol/HDL Ratio 10.2 Brief Hospital Course Mr. Franklin is a 57 old no past medical history may be hypertension but not taking meds admitted because of left-sided facial numbness and left-sided weakness and some slurred speech. Did receive alteplase and ICU care. Found to have left cerebellar stroke and left vertebral artery stenosis. No need for transfer to as discussed with neuro IR in . Started on Eliquis for 6 month as per neurology and some statin as lipids are high. Echo normal bubble. No PT needs. I have Rx Eliquis and other dyslipidemia pills. Educated about Eliquis and its side effects. They all understand. Discharge disposition to home DC time less than 30 minutes Consults performed neurology-vascular surgery Procedures performed multiple imaging but no intervention needed Discharge Information Condition at Discharge: Improved, Stable Disposition/Orders: D/C to Home Scheduled Apixaban (Eliquis) 5 Mg Tablet, 5 MG PO BID for cva MDD 1 for 180 Days, #360 Prescribed by: ALON KEENAN on 07/26/18 1103 Atorvastatin Calcium (Atorvastatin Calcium) 40 Mg Tablet, 40 MG PO QHS for hlp MDD 1, #30 Prescribed by: ALON KEENAN on 07/26/18 1103 Fenofibrate (Fenofibrate) 54 Mg Tablet, 54 MG PO DAILY for hlp MDD 1, #30 Prescribed by: ALON KEENAN on 07/26/181102 Lisinopril (Lisinopril) 10 Mg Tablet, 10 MG PO DAILY for htn MDD 1, #30 Ref 0 Prescribed by: ALON KEENAN on 07/26/181102 [place]-3 Fatty Acids/Fish Oil (Fish Oil 1,000 Mg Capsule) 1 Each Capsule, 1,000 MG PO DAILY for hlp MDD 1, #30 Prescribed by: ALON KEENAN on 07/26/181102 ALON KEENAN MD Jul 26, 2018 11:54
== END 2018-07-26 11:39 | disposition home or self-care (01) | DRG 61 ==
LOC: ER 09:09 → 1 WEST ICU 09:37 → 6 SOUTH 07-25 18:15
PROVIDERS: ADMIT Internal Medicine; ATTEND Internal Medicine
DX: I63.9 Cerebral infarction, unspecified (principal); I77.74 Dissection of vertebral artery; I10 Essential (primary) hypertension; E78.2 Mixed hyperlipidemia; I16.0 Hypertensive urgency; F17.210 Nicotine dependence, cigarettes, uncomplicated; I65.02 Occlusion and stenosis of left vertebral artery; Z91.19 Patient's noncompliance with other medical treatment and regimen; Z86.73 Personal history of transient ischemic attack (TIA), and cerebral infarction without residual deficits; Z71.6 Tobacco abuse counseling; Z82.49 Family history of ischemic heart disease and other diseases of the circulatory system; Z79.01 Long term (current) use of anticoagulants; Z79.899 Other long term (current) drug therapy; Z91.14 Patient's other noncompliance with medication regimen
CPT/HCPCS: 36415; 70450; 70496; 70498; 70551; 80053; 80061; 82962; 84484; 85027; 85610; 85730; 87641; 90471; 90756; 93005; 93306; J0360; J2270; J2997; Q9967; 92526; 92610; Q2035

== ENCOUNTER → 2018-12-08 | Outpatient (CLI) | payer BC ==
[~2018-12-08] MED LIST changes: +APIX5TAB PO; +ATOR40TA59 PO; +FENO54TA PO; +IOHEXOL 350 MG/ML 100 ML VIAL. IV ONE; +OMEG1CAP6 PO
--- NOTE | 2018-12-11 09:42 | RAD ---
EXAM: 1. CTA HEAD WITH AND WITHOUT CONTRAST. 2. CTA NECK WITH AND WITHOUT CONTRAST. HISTORY: Left vertebral artery dissection. TECHNIQUE: Computed tomographic angiography of the head and neck was performed before and after the intravenous administration of 90 mL Omnipaque 350. Three-dimensional reconstructions were also performed. COMPARISON: 07/24/2018. FINDINGS: Angiographic findings: The aortic arch has a typical branching pattern. There is no arch vessel stenosis. Both common carotid arteries are patent without stenosis. Both internal carotid arteries are patent without stenosis. The external carotid systems are patent. There is focal severe stenosis of the left vertebral artery at the foramen magnum. This is not clearly changed. A tiny residual lumen is suspected. More distally, the vertebral artery is patent, possibly from retrograde filling from the right. The right vertebral artery is dominant and patent. There are limitations from venous contamination. The basilar artery is patent. Both posterior cerebral arteries are patent. The posterior communicating arteries are visualized. There are mild atherosclerotic calcifications along the cavernous internal carotid arteries without stenosis. The middle cerebral arteries are patent. The anterior cerebral arteries are patent. The anterior communicating artery is visualized. Nonangiographic findings: There is no intracranial hemorrhage. Burnett-white differentiation is preserved. The ventricles are normal in size and position. There is mucosal thickening within the right aspect of the frontal sinus. The orbits are unremarkable. The temporal bones are unremarkable. Bone windows reveal no suspicious lesions. The lung apices demonstrate mild to moderate centrilobular and paraseptal emphysema. There is a calcified granuloma in the left lower lobe. The parotid glands and submandibular glands are unremarkable. The thyroid gland demonstrates no suspicious lesions. There is a multilobulated aerated laryngocele on the right and anteriorly. Altogether, the lobules and 1.3 x 0.8 cm. There are no pathologically enlarged lymph nodes. IMPRESSION: 1. Stable focal severe stenosis along the left distal vertebral artery at the level of the foramen magnum. There is no evidence of dissection proximal or distal to this point. 2. The right vertebral artery is dominant and patent. 3. No hemodynamically significant carotid stenosis or atherosclerotic change. 4. A multilobulated laryngocele on the right measures 1.3 x 0.8 cm. 5. Mild to moderate centrilobular and paraseptal emphysema. PQRS Compliance Statement - Stenosis calculations for CT, MR and conventional angiography are based upon measurement of the distal ICA diameter in accordance with the NASCET methodology. Stenosis calculations for carotid ultrasound studies are derived from validated velocity criteria which are known to correlate with the NASCET methodology. *One or more of the following individualized dose reduction techniques were utilized for this examination: 1. Automated exposure control. 2. Adjustment of the mA and/or kV according to patient size. 3. Use of iterative reconstruction technique. Electronically signed by: Arcelia Perez MD (12/11/2018 9:39 AM) [facility]
== END | disposition home or self-care (01) ==
LOC: CT 07:36
PROVIDERS: ATTEND Psychiatry & Neurology Neurology with Special Qualifications in Child Neurology
DX: I77.74 Dissection of vertebral artery (principal); I65.02 Occlusion and stenosis of left vertebral artery; J43.2 Centrilobular emphysema; J84.10 Pulmonary fibrosis, unspecified
CPT/HCPCS: 70496; 70498; Q9967

== ENCOUNTER → 2020-09-03 | Outpatient (CLI) | payer BC ==
[~2020-09-03] MED LIST changes: +CONTRAST GIVEN. MC PRN; +LISI10TA16 PO; -LISI10TA2 PO
--- NOTE | 2020-09-03 14:49 | RAD ---
EXAM: CT Angiogram of the Head and Neck INDICATION: Reason: THROMBOTIC STROKE / Spl. Instructions: INJ 75ML OMNI 350 / History: TECHNIQUE: CT images were obtained through the head per standard CTA protocol. Multiplanar and 3D ref ormatted images were generated from the CT dataset on an independent workstation. All CT scans perfor med at this facility utilize dose optimization techniques as appropriate to the exam, including the f ollowing: Automated exposure control and adjustment of the mA and/or KV according to patient size (th is includes techniques or standardized protocols for targeted exams where dose is indication/reason f or exam). IV CONTRAST: Administered COMPARISON: CT angiogram head and neck of 12/08/2018 FINDINGS: CTA HEAD: Some venous contamination is present, limiting detail. There is been marked interval improvement in the previous high-grade stenosis in the proximal V4 segm ent of the left vertebral artery with residual approximately 50 percent luminal stenosis. Otherwise no high-grade large vessel stenosis, proximal or branch vessel occlusion, aneurysm, or vasc ular malformation. ANTERIOR CIRCULATION: Anterior and middle cerebral arteries are widely patent. ANTERIOR COMMUNICATING ARTERY: Patent. POSTERIOR COMMUNICATING ARTERIES: Diminutive but present bilaterally and patent. POSTERIOR CIRCULATION: Vertebral and basilar arteries are widely patent. Bilateral posterior inferio r cerebellar arteries (PICAs), anterior inferior cerebellar arteries (AICAs), and superior cerebellar arteries (SCAs) are visualized and patent. Bilateral posterior cerebral arteries are patent. OTHER: No abnormal brain parenchymal enhancement. The paranasal sinuses, mastoid air cells, and tymp anic cavities are clear. Previous mucosal thickening in the right frontoethmoid recess has improved. NECK CTA: AORTA: 3 vessel configuration of arch. No dissection or acute aortic injury. No hemodynamically sign ificant great vessel origin stenosis. There is some circumferential mild wall thickening in the aorti c arch and the origin of the innominate artery and left subclavian artery without November the signif icant stenosis.. RIGHT CAROTID: Common and internal carotid arteries are widely patent, without evidence of flow limi ting stenosis or dissection. LEFT CAROTID: Common and internal carotid arteries are widely patent, without evidence of flow limit ing stenosis or dissection. VERTEBRAL ARTERIES: Right dominant Widely patent on the right. Improvement in left V4 stenosis as renetta cribed above (image 243 of axial series 3 best demonstrates this finding). SUBCLAVIAN ARTERIES:Subclavian arteries are patent without stenosis. SOFT TISSUES: Soft tissues are unremarkable. Lung apices again demonstrate centrilobular and parasep tim pattern emphysema. Where applicable, evaluation of ICA stenosis was performed using NASCET criteria, where the site of g reatest stenosis is compared to the diameter of the ICA distal to the carotid bulb. IMPRESSION: Improved stenosis in the left V4 segment vertebral artery, likely from atheromatous plaque with resid ual approximately 50 percent luminal stenosis. Otherwise widely patent arterial vessels in the head a nd neck with mild wall thickening in the supra aortic vessels that could reflect atheromatous plaque or sequelae of large vessel vasculopathy. Correlate clinically. Electronically signed by: Sushila Oconnell MD (09/03/2020 2:46 PM) [id number]
== END ==
LOC: CT 10:08
PROVIDERS: ATTEND Psychiatry & Neurology Neurology with Special Qualifications in Child Neurology
DX: I63.342 Cerebral infarction due to thrombosis of left cerebellar artery (principal); I77.4 Celiac artery compression syndrome
CPT/HCPCS: 70496; 70498; Q9967

== ENCOUNTER → 2020-10-06 | Outpatient (CLI) | payer BC ==
[~2020-10-06] MED LIST changes: -CONTRAST GIVEN. MC PRN; -IOHEXOL 350 MG/ML 100 ML VIAL. IV ONE; +REGADENOSON 0.4 MG/5 ML DISP.SYRIN. IV ONE
--- NOTE | 2020-10-06 12:31 | CARD ---
MR#: [id number] Date of Study: 10/06/2020 Ordering Physician: ASHLEIGH COHEN, Referring Physician: ASHLEIGH COHEN Tech: Kellen Paul JOVANNY APPROVED REPORT EXAM: Two-dimensional and M-mode echocardiogram with Doppler and color Doppler. Other Information Quality : Fair INDICATION Chest Pain RISK FACTORS Smoking 2D DIMENSIONS Left Atrium(2D)4.1 (1.6-4.0cm)IVSd0.9 (0.7-1.1cm) Aortic Root(2D)3.0 (2.0-3.7cm)LVDd5.1 (3.9-5.9cm) LVOT Diameter2.4 (1.8-2.4cm)PWd1.0 (0.7-1.1cm) LVDs3.2 (2.5-4.0cm)FS (%) 30.0 % SV81.9 mlLVEF(%)60.0 (>50%) Aortic Valve AoV Peak Hugo.128.2cm/sAoV VTI24.4cm AO Peak GR.6.6mmHgLVOT Peak Hugo.117.8cm/s AO Mean GR.4mmHgAVA (VMAX)3.99cm2 TREVA (VTI)4.40cm2 Mitral Valve MV E Heynfenw94.5cm/sMV DECEL [id number] MV A Jasiplcx98.1cm/sE/A Ratio0.8 Tricuspid Valve TR P. Lpnuujhk472ik/sRAP XPHSTJYW1fmLm TR Peak Gr.93kgRrLEPZ49ovSv Pulmonary Vein S1 Wxxrdyda09.3cm/sD2 Pzadvxdr24.3cm/s LEFT VENTRICLE The left ventricle is normal size. There is normal left ventricular wall thickness. The left ventricu lar systolic function is normal and the ejection fraction is within normal range. The Ejection Fracti on is 55-60%. There is normal LV segmental wall motion. Transmitral Doppler flow pattern is Grade I-a bnormal relaxation pattern. RIGHT VENTRICLE The right ventricle is normal size. The right ventricular systolic function is normal. ATRIA The left atrium is mildly dilated. The right atrium size is normal. The interatrial septum is intact with no evidence for an atrial septal defect or patent foramen ovale as noted on 2-D or Doppler imagi ng. AORTIC VALVE The aortic valve is not well visualized. Doppler and Color Flow revealed no significant aortic regurg itation. There is no significant aortic valvular stenosis. MITRAL VALVE The mitral valve is calcified but opens well. There is no evidence of mitral valve prolapse. There is no mitral valve stenosis. Doppler and Color Flow revealed no mitral valve regurgitation noted. TRICUSPID VALVE The tricuspid valve is normal in structure and function. Doppler and Color Flow revealed trace tricus pid regurgitation. The PA pressure was estimated at 33 mmHg. There is no tricuspid valve stenosis. PULMONIC VALVE The pulmonic valve is not well visualized. GREAT VESSELS The aortic root is normal in size. The ascending aorta is not well seen. The IVC is dilated and colla pses >50% with inspiration. PERICARDIAL EFFUSION There is no evidence of significant pericardial effusion. Critical Notification Critical Value: No <Conclusion> The left ventricle is normal size. The left ventricular systolic function is normal and the ejection fraction is within normal range. The Ejection Fraction is 55-60%. Doppler and Color Flow revealed no significant aortic regurgitation. There is no significant aortic valvular stenosis. Doppler and Color Flow revealed no mitral valve regurgitation noted. Doppler and Color Flow revealed trace tricuspid regurgitation. The PA pressure was estimated at 33 mmHg. Signed by : Shelton Asif MD Electronically Approved : 10/06/2020 12:30:49
--- NOTE | 2020-10-07 12:51 | RAD ---
MR#: [id number] Date of Study: 10/06/2020 Ordering Physician: ASHLEIGH COHEN, Referring Physician: ALYX GRIJALVA Tech: RT Bipin Wong) (N) APPROVED REPORT Test Type: Pharmacological Stress Nurse/Tech: Kori Awad RN Test Indications: Anginal equivalent Cardiac History: Family history, Hypertension,smoker,stroke Medications: See Electronic Medical Record Medical History: See Electronic Medical Record Resting ECG: SR Resting Heart Rate: 63 bpm Resting Blood Pressure: 122/77mmHg Pretest Chest Pain: No chest pain Nurse/Tech Notes S1,S2 and lungs with bilateral expiratory wheezes throughout. Consent: The procedure was explained to the patient in lay terms. Informed consent was witnessed. Arron eout was entered into [employer] [place]. History and Stress Test performed by RT Bipin Wong) (N) Pharm. Details Pharmacologic stress testing was performed using 0.4mg per 5ml of regadenoson given intravenously ove r 7-10 seconds. Stress Symptoms Dyspnea,headache POST EXERCISE Reason for Termination: Infusion complete Target HR: No Max HR: 129 bpm 94% of Maximum Predicted HR: 136 bpm Max Blood Pressure: 138/90mmHg Blood Pressure response to exercise: Normal blood pressure response during stress. Heart Rate response to exercise: WNL Chest Pain: No. Arrhythmia: No. ST Change: No. INTERPRETATION Stress EKG Conclusion: The resting EKG shows a sinus rhythm with mild nonspecific ST segment changes. The stress EKG shows no significant changes from baseline. No EKG evidence of stress-induced ischemia. Imaging Protocol IMAGE PROTOCOL: Rest Tc-99m/stress Tc-99m 1 day Rest: Stress: Viability: Radiopharm.Tc99m GgahdpiluWs53h Sestamibi Dose10.6mCi 31mCi Duration 15min. 10min. Img Date 10/06/2020 10/06/2020 Inj-Img Fsbk34ffd. 60min. Rest Admin Site:IV - Right AntecubitalAdministrator:RT Yen WongR)(N) Stress Admin Site: IV - Right AntecubitalAdministrator: DINORAH Costello, ARRT (R)(N) STRESS DATA End Diast. Vol.94.0mlAv. Heart Rate73.0bpm End Syst. Vol.26.0mlCO Index BSA0.0L/min Myocardial Pcpc969.0gEject. Uchnvnrc48.0% Stress Rates Pk. Fill Rate3.36EDV/secLVtime Pk. Fill 221.70msec Pk. Empty Rate4.03ESV/secLVtime Pk. Imuxo702.34msec /3 Pk. Fill1.15EDV/sec Stress Scores Regional WT0.00Summed WT0.00 Regional WM0.00Summed WM1.00 LV Perfusion The stress images show slight inferior wall thinning. The rest images show slight inferior wall thinning. Nuclear imaging shows no reversible ischemia. Nuclear imaging shows fixed slight inferior wall thinning most likely due to an attenuation defect. Wall Motion Left ventricular systolic function is normal with no regional wall motion abnormalities and an ejecti on fraction of greater than 70%. LV Perf. Quant 17 Seg. SSS1.00 17 Seg. SRS5.00 17 Seg. SDS0.00 Stress Defect Extent (% LAD)0.00Rest Defect Extent (% LAD)0.00Rev. Defect Extent (% LAD)0.00 Stress Defect Extent (% LCX) 0.00Rest Defect Extent (% LCX)0.00Rev. Defect Extent (% LCX)0.00 Stress Defect Extent (% RCA)7.80Rest Defect Extent (% RCA)25.60Rev. Defect Extent (% RCA)0.00 Stress Defect Extent (% PAOLA)1.50Rest Defect Extent (% PAOLA)7.40Rev. Defect Extent (% PAOLA)0.00 Conclusion 1. No EKG evidence of stress-induced ischemia. 2. Nuclear imaging shows no reversible ischemia. 3. Nuclear imaging shows slight fixed inferior wall thickening most consistent with an attenuation de fect. 4. LV systolic function is normal with no regional wall motion abnormalities and an ejection fraction of greater than 70%. 5. Moderately low to low risk Lexiscan nuclear stress test with no reversible ischemia and normal LV function. Signed by : Shelton Asif MD Electronically Approved : 10/07/2020 12:50:49
== END ==
LOC: ECHO 08:51
PROVIDERS: ATTEND Internal Medicine Cardiovascular Disease
DX: I34.0 Nonrheumatic mitral (valve) insufficiency (principal); I20.8 Other forms of angina pectoris; I10 Essential (primary) hypertension; Z87.891 Personal history of nicotine dependence
CPT/HCPCS: 78452; 93017; 93306; A9500; J2785